=== PATIENT | male | born 1945 | race Caucasian/White ===

== ENCOUNTER 2018-05-24 13:58 | Inpatient (IN) | payer MEDICARE, OTHER, SELFPAY ==
[2018-05-24] VITALS (26 sets, daily range): BP systolic 144–211; BP diastolic 105–147; PULSE 65–88; RESP 12–26; TEMP 36.6–36.8; O2SAT 88–100
--- NOTE | 2018-05-24 14:03 | DI.CT.S_ITS ---
PROCEDURE: CT ABDOMEN PELVIS W CON INDICATIONS: abdomen distention LLQ pain TECHNIQUE: After the administration of intravenous contrast, 5 mm thick sections acquired from the diaphragm to the symphysis. 5 mm coronal and sagittal reformats were acquired. For radiation dose reduction, the following was used: automated exposure control, adjustment of mA and/or kV according to patient size. COMPARISON: None. FINDINGS: Image quality: Excellent. ABDOMEN: Lung bases: There is mild atelectasis in the lung bases along the hemidiaphragms. Heart size is normal. A small to moderate size hiatal hernia is present. There is mild concentric wall thickening in the distal esophagus. Solid organs: No focal hepatic mass lesion identified. There is mass effect on the liver from the dilated colonic loops. The gallbladder is nondistended without calcified gallstones. Biliary system is non dilated. Pancreas enhances normally. Spleen is normal in size and enhancement. No adrenal nodules. There is a right extrarenal pelvis. No definite hydronephrosis. Peritoneum and bowel: The small bowel is nondistended. There is marked distention of the colon, with the transverse colon measuring up to 9.7 cm. Air-fluid levels are demonstrated in the transverse, descending and sigmoid colon. There is a transition point distally in the sigmoid colon where there is associated twisting of the mesentery. The findings are consistent with a distal colonic obstruction likely secondary to a sigmoid volvulus. There is a small amount of intraperitoneal free fluid. No free air. Nodes and vessels: No retroperitoneal or mesenteric adenopathy by size criteria. Aorta and inferior vena cava are normal in size. Miscellaneous: No ventral hernias. PELVIS: Genitourinary: Bladder wall thickness is normal. There is prominent distention of the urinary bladder. Miscellaneous: No inguinal hernias or adenopathy. Bones: No suspicious bony lesions. No vertebral body compression fractures. IMPRESSION: 1. Marked distention of the colon with air-fluid levels and a transition point in the sigmoid colon consistent with a distal colonic obstruction. Associated twisting of the mesentery as well as the configuration of the sigmoid colon are suggestive of a sigmoid volvulus. Findings discussed with Dr. Marquez on 05/24/18 at 3:25 PM. Dictated by: Regis Juárez M.D. on 05/24/2018 at 15:25 Approved by: Regis Juárez M.D. on 05/24/2018 at 15:31
[2018-05-24 14:25] LABS: Add Manual Diff / Slide Review NO; Basophils Percent Auto 0.3 % (0-2); Eosinophils Percent Auto 0.3 % (2-4); Hemoglobin 14.7 g/dL (13.5-17.5); Lymphocytes Percent Auto 15.8 % (25-40); Mean Corpuscular Hemoglobin 32.1 PG (26-34); Mean Corpuscular Volume 91.8 fL (80-100); Monocytes Percent Auto 12.9 % (3-14); Neutrophils Absolute Auto 9300 /uL (3000-5900); Neutrophils Percent Auto 70.7 % (50-75); Platelet Count 315 X10^3/uL (150-400); Red Blood Cell Count 4.57 X10^6/uL (4.5-5.9); Red Cell Distribution Width 12.7 % (11.6-14.8); White Blood Cell Count 13.2 X10^3/uL (4.5-11.0)
--- NOTE | 2018-05-24 14:32 | ED.ABDPAIN ---
HPI - Abdominal Pain General Chief Complaint: Abdominal Pain Stated Complaint: Constipation x9 days Time Seen by Provider: 05/24/18 14:03 Source: patient and EMS Mode of arrival: EMS Limitations: no limitations History of Present Illness HPI narrative: Patient is a 72-year-old male who presents with abdominal pain. As he says it left lower quadrant he feels like he has have a bowel movement but has not had a bowel movement last 9 days. He denies any nausea or vomiting. No pressure in his rectum. He has no chest pain or heart palpitations no fever. MD complaint: abdominal pain Related Data Home Medications Medication Instructions Recorded Confirmed dorzolamide-timolol 1 drp EYE-BOTH BID 05/24/18 05/25/18 hydrochlorothiazide 25 mg PO DAILY 05/24/18 05/24/18 triamcinolone acetonide 1 applic TOPICAL PRN PRN 05/24/18 05/24/18 vitamins A,C,[id number] 1 tab PO BID 05/24/18 05/24/18 [PreserVision AREDS] Allergies Allergy/AdvReac Type Severity Reaction Status Date / Time No Known Drug Allergies Allergy Verified 05/24/18 15:17 Review of Systems Review of Systems All systems reviewed & are unremarkable except as noted in HPI and below Constitutional Denies chills, Denies fever(s), Denies lethargy and Denies weakness ENT Ears, Nose, Mouth, and Throat: Denies change in voice, Denies neck pain and Denies sore throat Cardiovascular Denies chest pain, Denies irregular heart rhythm, Denies lightheadedness, Denies palpitations, Denies dyspnea, Denies dyspnea on exertion and Denies orthopnea Respiratory Denies cough, Denies dyspnea, Denies dyspnea on exertion and Denies wheezing Gastrointestinal Gastrointestinal: Reports as per HPI, Reports abdominal pain, Reports constipation and Reports cramping Musculoskeletal Denies neck pain Neurologic Denies weakness Endocrine Denies palpitations Allergic/Immunologic Denies wheezing [facility] Medical History Hypertension (Acute) No significant past surgical history (Acute) Surgical History History of colonoscopy (Acute) Family History: Reviewed 05/24/18 by Pelon Stewart MD Social History household members: spouse Smoking Status: Never smoker Exam Initial Vital Signs Initial Vital Signs: Vital Signs Pulse Rate 83 05/24/18 15:17 Respiratory Rate 17 05/24/18 15:17 Blood Pressure 198/114 H 05/24/18 15:17 Pulse Oximetry 97 05/24/18 15:17 Const General: cooperative, healthy appearing and comfortable Nutritional Appearance: average body habitus HENMT Head: normocephalic and atraumatic Ears: external ears normal and TM's normal bilaterally Nose: external nose normal and No nasal discharge Face and sinus: sinuses nontender, face symmetric, no sinus tenderness and No dry mucous membranes Mouth: oral mucosae normal and moist mucous membranes Teeth and gingiva: dentition normal Throat: tonsils normal and uvula midline Neck Neck: normal visual inspection, trachea midline, No lymphadenopathy, No midline deformity and No JVD Lymphatic: No lymphedema Chest Chest: normal inspection of the chest Cardio Rate: regular rate Rhythm: regular rhythm Heart Sounds: no click, no gallops, no murmurs and no rubs Pulses: normal peripheral pulses GI Palpation: firm, rigid and tender Percussion: tympanic to percussion Auscultation: high-pitched sounds Procedures Procedural Sedation Patient Age: Patient is 5yrs or older Indication: other (Endoscopy) Presedation Evaluation: Has not eaten since yesterday ASA Class: I Mallampati Airway Classification: Class I Preparation: alumina plant supervisor applied, pulse oximeter, capnometry used and supplemental O2 applied Fentanyl dose (mcg): 10 (100mcg) Midazolam: IV Midazolam dose (mg): 2 ED Sedation Level: Moderate (Concious) Patient Tolerated Procedure: Well Complications: hypoxia Interventions: Airway repositioned and Oxygen applied Course Orders Ordered: ED Orders 05/25/18 05:44 Basic Metabolic Panel Routine CBC [Complete Blood Count AUTO DIFF] Routine Acetaminophen (Tylenol) 650 mg PO Q6HR PRN PRN Reason: As Needed for Fever/Mild Pain Dorzolamide/Timolol (Cosopt Eye Drops) 1 drops EYE-BOTH BID [facility] Enoxaparin Sodium (Lovenox) 40 mg SUBCUT DAILY [facility] HYDROMORPHONE EVENT SPECIALIST PRODUCT DEMONSTRATOR (Dilaudid 6 Mg/30 Ml) 6 mg in 30 mls @ 0 mls/hr IV Q8HR [facility] Last Admin: 05/25/18 03:26 Dose: 0 mls/hr Sodium Chloride (Normal Saline 0.9%) 1,000 mls @ 100 mls/hr IV CONT [facility] Last Admin: 05/25/18 03:25 Dose: 100 mls/hr Naloxone HCl (Narcan) 0.2 mg IV Q2MIN PRN; Protocol PRN Reason: Opiate Reversal Ondansetron HCl (Zofran) 4 mg IV Q8HR PRN PRN Reason: Nausea And Vomiting Pantoprazole Sodium (Protonix) 40 mg IV DAILY [facility] Simethicone (Mylicon) 80 mg PO QID PRN PRN Reason: Flatulence Discontinued Medications Bupivacaine HCl (Sensorcaine 0.5% (Pf)) 30 ml INJ NOW ONE Stop: 05/24/18 23:46 Last Admin: 05/24/18 23:48 Dose: 30 ml Fentanyl (Sublimaze) 100 mcg IV NOW ONE Stop: 05/24/18 19:25 Last Admin: 05/24/18 19:16 Dose: 100 mcg Fentanyl (Sublimaze) 50 mcg IV Q5MIN PRN PRN Reason: Pain, Moderate (4-6) Last Admin: 05/24/18 22:33 Dose: 50 mcg Hydralazine HCl (Apresoline) 20 mg IV NOW ONE Stop: 05/25/18 02:01 Last Admin: 05/25/18 02:18 Dose: 5 mg Hydromorphone HCl (Dilaudid) 0.5 mg IV NOW ONE Stop: 05/24/18 15:24 Last Admin: 05/24/18 15:24 Dose: 0.5 mg Hydromorphone HCl (Dilaudid) 1 mg IV NOW ONE Stop: 05/24/18 18:03 Last Admin: 05/24/18 18:09 Dose: 1 mg Hydromorphone HCl (Dilaudid) 0.5 mg IV Q5MIN PRN PRN Reason: Pain, Moderate (4-6) Hydromorphone HCl (Dilaudid) 1 mg IV Q2H PRN PRN Reason: Pain, Severe (7-10) Sodium Chloride (Normal Saline 0.9%) 1,000 mls @ 1,000 mls/hr IV CONT [facility] Last Infusion: 05/24/18 16:40 Dose: 0 mls/hr Admin: 05/24/18 15:23 Dose: 1,000 mls/hr Potassium Chloride 40 meq/ (Sodium Chloride) 520 mls @ 130 mls/hr IV NOW ONE Stop: 05/24/18 19:17 Last Infusion: 05/24/18 20:20 Dose: 0 mls/hr Admin: 05/24/18 15:48 Dose: 130 mls/hr Lactated Ringer's (Lactated Ringers) 1,000 mls @ 42 mls/hr IV CONT [facility] Last Infusion: 05/25/18 02:30 Dose: 0 mls/hr Admin: 05/24/18 23:45 Dose: 42 mls/hr Infusion: 05/24/18 23:45 Dose: 42 mls/hr Admin: 05/24/18 23:05 Dose: 42 mls/hr Sodium Chloride (Normal Saline 0.9%) 1,000 mls @ 100 mls/hr IV CONT [facility] Last Admin: 05/25/18 04:15 Dose: Not Given Cefotetan Disodium/Dextrose (Cefotan) 2 gm in 50 mls @ 100 mls/hr IV NOW ONE Stop: 05/24/18 22:36 Last Infusion: 05/24/18 23:32 Dose: 0 mls/hr Admin: 05/24/18 23:15 Dose: 100 mls/hr Sodium Chloride (Normal Saline 0.9%) 1,000 mls @ 100 mls/hr IV CONT [facility] Last Admin: 05/25/18 04:16 Dose: Not Given Midazolam HCl (Versed) 2 mg IV NOW ONE Stop: 05/24/18 19:26 Last Admin: 05/24/18 19:16 Dose: 2 mg Ondansetron HCl (Zofran) 4 mg IV NOW PRN PRN Reason: Nausea And Vomiting Vital Signs - 8 hr 05/24/18 23:13 05/24/18 23:17 05/24/18 23:21 Temperature Pulse Rate 71 74 76 Respiratory Rate 14 16 16 Blood Pressure 193/117 H 211/114 H 200/117 H Pulse Oximetry 92 92 93 05/24/18 23:25 05/24/18 23:29 05/24/18 23:33 Temperature Pulse Rate 66 73 69 Respiratory Rate 15 16 15 Blood Pressure 173/106 H 200/116 H 208/110 H Pulse Oximetry 92 92 94 05/24/18 23:45 05/24/18 23:57 05/25/18 01:55 Temperature 97.0 F L Pulse Rate 78 71 80 Respiratory Rate 13 15 11 L Blood Pressure 188/112 H 189/110 H 186/103 H Pulse Oximetry 92 93 91 05/25/18 02:00 05/25/18 02:08 05/25/18 02:14 Temperature Pulse Rate 79 82 81 Respiratory Rate 14 13 12 Blood Pressure 167/99 H 184/100 H 186/103 H Pulse Oximetry 93 96 96 05/25/18 02:18 05/25/18 02:25 05/25/18 02:29 Temperature Pulse Rate 80 87 82 Respiratory Rate 11 L 18 Blood Pressure 186/103 H 161/95 H 160/82 H Pulse Oximetry 97 98 05/25/18 02:59 05/25/18 03:20 05/25/18 03:40 Temperature 97.7 F 97.9 F 97.8 F Pulse Rate 85 85 86 Respiratory Rate 20 20 18 Blood Pressure 163/98 H 153/88 H 156/106 H Pulse Oximetry 96 97 96 05/25/18 03:52 05/25/18 04:17 05/25/18 04:36 Temperature 98.0 F Pulse Rate 87 Respiratory Rate 20 Blood Pressure 153/88 H 149/81 H Pulse Oximetry 95 95 05/25/18 06:18 Temperature 97.4 F L Pulse Rate 95 H Respiratory Rate 18 Blood Pressure 150/90 H Pulse Oximetry 94 MDM - Abdominal Pain Lab Data Attestation: I reviewed the patient's lab results. Result diagrams: 05/25/18 05:44 05/25/18 05:44 Lab Results 05/24/18 05/24/18 05/24/18 Range/Units 14:15 14:15 14:15 WBC 13.2 H (4.5-11.0) X10^3/uL RBC 4.57 (4.5-5.9) X10^6/uL Hgb 14.7 (13.5-17.5) g/dL Hct 42.0 (41-53) % MCV 91.8 (80-100) fL MCH 32.1 (26-34) PG MCHC 35.0 (30-36) % RDW 12.7 (11.6-14.8) % Plt Count 315 (150-400) X10^3/uL Neut % (Auto) 70.7 (50-75) % Lymph % (Auto) 15.8 L (25-40) % [place] % (Auto) 12.9 (3-14) % Eos % (Auto) 0.3 L (2-4) % Baso % (Auto) 0.3 (0-2) % Neut # (Auto) 9300 H (8830-8334) /uL Sodium 130 L (137-145) mmol/L Potassium 2.4 L* (3.4-5.1) mmol/L Chloride 81 L (98-107) mmol/L Carbon Dioxide 33 H (22-32) mmol/L BUN 19 (9-20) mg/dL Creatinine 0.60 L (0.66-1.25) mg/dL Estimated GFR > 60.0 (>60) mL/min BUN/Creatinine Ratio 31.7 H (6-22) Glucose 128 H (80-110) mg/dL Lactate 1.5 (0.7-2.1) mmol/L Calcium 8.5 (8.4-10.2) mg/dL Total Bilirubin 0.9 (0.2-1.3) mg/dL AST 30 (17-59) IU/L ALT 26 (21-72) IU/L Alkaline Phosphatase 57 (38-126) U/L Total Protein 7.1 (6.3-8.2) g/dL Albumin 4.4 (3.5-5.0) g/dL Globulin 2.7 (1.7-4.1) g/dL Albumin/Globulin Ratio 1.6 (1.0-2.8) Lipase 33 (23-300) U/L 05/25/18 05/25/18 Range/Units 05:44 05:44 WBC 14.2 H (4.5-11.0) X10^3/uL RBC 4.46 L (4.5-5.9) X10^6/uL Hgb 14.4 (13.5-17.5) g/dL Hct 41.0 (41-53) % MCV 92.0 (80-100) fL MCH 32.3 (26-34) PG MCHC 35.1 (30-36) % RDW 13.1 (11.6-14.8) % Plt Count 268 (150-400) X10^3/uL Neut % (Auto) Not Reportable (50-75) % Lymph % (Auto) Not Reportable (25-40) % [place] % (Auto) Not Reportable (3-14) % Eos % (Auto) Not Reportable (2-4) % Baso % (Auto) Not Reportable (0-2) % Neut # (Auto) (0028-8083) /uL Sodium 130 L (137-145) mmol/L Potassium 3.0 L (3.4-5.1) mmol/L Chloride 86 L (98-107) mmol/L Carbon Dioxide 35 H (22-32) mmol/L BUN 14 (9-20) mg/dL Creatinine 0.60 L (0.66-1.25) mg/dL Estimated GFR > 60.0 (>60) mL/min BUN/Creatinine Ratio 23.3 H (6-22) Glucose 127 H (80-110) mg/dL Lactate (0.7-2.1) mmol/L Calcium 8.2 L (8.4-10.2) mg/dL Total Bilirubin (0.2-1.3) mg/dL AST (17-59) IU/L ALT (21-72) IU/L Alkaline Phosphatase (38-126) U/L Total Protein (6.3-8.2) g/dL Albumin (3.5-5.0) g/dL Globulin (1.7-4.1) g/dL Albumin/Globulin Ratio (1.0-2.8) Lipase (23-300) U/L Imaging Data CT scan - abdomen: Radiologist's impression: PROCEDURE: CT ABDOMEN PELVIS W CON INDICATIONS: abdomen distention LLQ pain TECHNIQUE: After the administration of intravenous contrast, 5 mm thick sections acquired from the diaphragm to the symphysis. 5 mm coronal and sagittal reformats were acquired. For radiation dose reduction, the following was used: automated exposure control, adjustment of mA and/or kV according to patient size. COMPARISON: None. FINDINGS: Image quality: Excellent. ABDOMEN: Lung bases: There is mild atelectasis in the lung bases along the hemidiaphragms. Heart size is normal. A small to moderate size hiatal hernia is present. There is mild concentric wall thickening in the distal esophagus. Solid organs: No focal hepatic mass lesion identified. There is mass effect on the liver from the dilated colonic loops. The gallbladder is nondistended without calcified gallstones. Biliary system is non dilated. Pancreas enhances normally. Spleen is normal in size and enhancement. No adrenal nodules. There is a right extrarenal pelvis. No definite hydronephrosis. Peritoneum and bowel: The small bowel is nondistended. There is marked distention of the colon, with the transverse colon measuring up to 9.7 cm. Air-fluid levels are demonstrated in the transverse, descending and sigmoid colon. There is a transition point distally in the sigmoid colon where there is associated twisting of the mesentery. The findings are consistent with a distal colonic obstruction likely secondary to a sigmoid volvulus. There is a small amount of intraperitoneal free fluid. No free air. Nodes and vessels: No retroperitoneal or mesenteric adenopathy by size criteria. Aorta and inferior vena cava are normal in size. Miscellaneous: No ventral hernias. PELVIS: Genitourinary: Bladder wall thickness is normal. There is prominent distention of the urinary bladder. Miscellaneous: No inguinal hernias or adenopathy. Bones: No suspicious bony lesions. No vertebral body compression fractures. IMPRESSION: 1. Marked distention of the colon with air-fluid levels and a transition point in the sigmoid colon consistent with a distal colonic obstruction. Associated twisting of the mesentery as well as the configuration of the sigmoid colon are suggestive of a sigmoid volvulus. Findings discussed with Dr. Marquez on 05/24/18 at 3:25 PM. Dictated by: Regis Juárez M.D. on 05/24/2018 at 15:25 MDM Narrative Medical decision making narrative: 3:[address] Stewart made aware of patient and CT results. 5:[address] Stewart in the ED to see and evaluate patient. Plan on trying to do procedure in the ED with sedation. Endoscopy in the ED by Dr. Stewart. Unsuccessful patient will be going to OR. Discharge Plan Departure Patient Disposition: Admitted As Inpatient Clinical Impression: Sigmoid volvulus Discharge Date/Time: 05/24/18 20:21 Interventions: ED Discharge Assessment Last Done: 05/24/18 20:19 Admit Date/Time: 05/24/18 19:32 Admit Provider: Pelon Stewart
[2018-05-24 14:46] LABS: Lactate (Lactic Acid) 1.5 mmol/L (0.7-2.1)
[2018-05-24 14:51] LABS: Alanine Aminotransferase 26 IU/L (21-72); Albumin 4.4 g/dL (3.5-5.0); Albumin Globulin Ratio 1.6 (1.0-2.8); Alkaline Phosphatase 57 U/L (38-126); Aspartate Aminotransferase 30 IU/L (17-59); BUN Creatinine Ratio 31.7 (6-22); Bilirubin Total 0.9 mg/dL (0.2-1.3); Blood Urea Nitrogen 19 mg/dL (9-20); Calcium 8.5 mg/dL (8.4-10.2); Carbon Dioxide 33 mmol/L (22-32); Chloride 81 mmol/L (98-107); Estimated Glomerular Filt Rate > 60.0 mL/min (>60); Globulin 2.7 g/dL (1.7-4.1); Glucose 128 mg/dL (80-110); HEMOLYSIS < 15 (0-50); Lipase 33 U/L (23-300); Sodium 130 mmol/L (137-145); Total Protein 7.1 g/dL (6.3-8.2)
[2018-05-24 15:00] LABS: Potassium 2.4 mmol/L (3.4-5.1)
[2018-05-24] MEDS: SODIUM CHLORIDE 0.9% 1,000 ML 1000 ML IV (15:23)
[2018-05-24] MEDS: HYDROMORPHONE 1 MG INJ 0.5 MG IV (15:24)
[2018-05-24] MEDS: POTASSIUM CHLORIDE 40 MEQ in SODIUM CHLORIDE 0.9% 500 ML 130 ML IV (15:48)
[2018-05-24] MEDS: HYDROMORPHONE 2 MG INJ 1 MG IV (18:09)
[2018-05-24] MEDS: fentaNYL 100 MCG/2 ML INJ IV (19:16)
[2018-05-24] MEDS: MIDAZOLAM 2 MG/2 ML VIAL IV (19:16)
--- NOTE | 2018-05-24 19:43 | PC.NURSE ---
Procedural sedation performed by Dr. Marquez with Respiratory, and Surgery. Pt is arousable to sound but is still drowsy. Pt informed on change of plan and verbalizes understanding. Pt resting. appears comfortable.
--- NOTE | 2018-05-24 19:54 | PC.NURSE ---
Per conversation with patient, He states he feels goofy but okay. Still a little drowsy but denies pain. Pt awakes to sounds. Continually asks if his procedure worked. Updated pt every time he asks. Pt is slowly remembering our conversations.
--- NOTE | 2018-05-24 19:58 | PM.HP.1 ---
History of Present Illness Date Patient Seen: 05/24/18 Time Patient Seen: 19:58 Chief complaint: Constipation x9 days Narrative: 72-year-old male who presented to the emergency department early this afternoon with acute onset of abdominal pain late last evening and progressed throughout the day today. He has ceased passing flatus. He has not had any type of bowel function in the last day or so. He now feels extremely distended and mildly nauseated. He is having crampy diffuse abdominal pain throughout the abdomen. No subjective fever or chills. No chest pain or shortness of breath. He has never had any type of similar episodes in the past. No prior abdominal surgeries as well. Patient History Medical History Hypertension (Acute) No significant past surgical history (Acute) Surgical History History of colonoscopy (Acute) Family & Social History Family History: Reviewed 05/24/18 by Pelon Stewart MD Tobacco & Substance use: Nonsmoker Meds Home Medications Medication Instructions Recorded Confirmed Type dorzolamide-timolol 1 drp OPHTHALMIC (EYE) BID 05/24/18 05/24/18 History hydrochlorothiazide 25 mg PO DAILY 05/24/18 05/24/18 History triamcinolone acetonide 1 applic TOPICAL PRN PRN 05/24/18 05/24/18 History vitamins A,C,[id number] 1 tab PO BID 05/24/18 05/24/18 History [PreserVision AREDS] Allergies Allergy/AdvReac Type Severity Reaction Status Date / Time No Known Drug Allergies Allergy Verified 05/24/18 15:17 Review of Systems Review of Systems All systems reviewed & are unremarkable except as noted in HPI and below Exam Vital Signs (past 8 hours): - 05/24/18 15:17 05/24/18 16:18 05/24/18 16:30 Temperature 98.2 F Pulse Rate 83 70 Respiratory Rate 17 26 H Blood Pressure [Right Arm] 198/114 H 182/108 H Pulse Oximetry 97 98 05/24/18 18:44 05/24/18 19:00 05/24/18 19:16 Temperature Pulse Rate 76 73 72 Respiratory Rate 16 14 Blood Pressure [Right Arm] 160/118 H 147/119 H 147/116 H Pulse Oximetry 96 100 94 05/24/18 19:20 05/24/18 19:22 05/24/18 19:30 Temperature Pulse Rate 73 72 76 Respiratory Rate 13 14 15 Blood Pressure [Right Arm] 154/106 H 154/105 H 144/116 H Pulse Oximetry 88 L 92 97 05/24/18 19:35 05/24/18 19:42 05/24/18 19:46 Temperature Pulse Rate 75 76 75 Respiratory Rate 13 12 12 Blood Pressure [Right Arm] 148/116 H 176/113 H 188/147 H Pulse Oximetry 97 97 97 05/24/18 19:51 05/24/18 19:57 Temperature Pulse Rate 78 75 Respiratory Rate 13 14 Blood Pressure [Right Arm] 168/115 H 178/118 H Pulse Oximetry 97 97 Oxygen Delivery Method Nasal Cannula Oxygen Flow Rate 4 Narrative Exam Narrative: Well-nourished well-developed male in no acute distress but does appear mildly uncomfortable. Alert oriented x3. He has no family or friends with him at the time my visit. Afebrile in the emergency department No tachycardia Blood pressure noted to be elevated due to discomfort Sclera nonicteric No crackles or wheezes on chest auscultation Abdomen is markedly distended and firm. He is completely tympanitic. He is diffusely tender to palpation throughout but without guarding or rebound. No masses. No ascites. Extremities show no clubbing, cyanosis, or edema Rectal examination reveals no masses. The rectal vault is completely empty of stool. Objective Labs Result Diagrams: 05/24/18 14:15 05/24/18 14:15 Labs: Laboratory Results - last 24 hr 05/24/18 05/24/18 05/24/18 14:15 14:15 14:15 WBC 13.2 H RBC 4.57 Hgb 14.7 Hct 42.0 MCV 91.8 MCH 32.1 MCHC 35.0 RDW 12.7 Plt Count 315 Neut % (Auto) 70.7 Lymph % (Auto) 15.8 L [place] % (Auto) 12.9 Eos % (Auto) 0.3 L Baso % (Auto) 0.3 Neut # (Auto) 9300 H Sodium 130 L Potassium 2.4 L* Chloride 81 L Carbon Dioxide 33 H BUN 19 Creatinine 0.60 L Estimated GFR > 60.0 BUN/Creatinine Ratio 31.7 H Glucose 128 H Lactate 1.5 Calcium 8.5 Total Bilirubin 0.9 AST 30 ALT 26 Alkaline Phosphatase 57 Total Protein 7.1 Albumin 4.4 Globulin 2.7 Albumin/Globulin Ratio 1.6 Lipase 33 I have personally reviewed his CT scan of the abdomen and pelvis done in the emergency department prior to my consultation. He clearly has a transition point in the sigmoid colon consistent with volvulus. The entire colon is otherwise markedly dilated and air-filled. Maximal diameter measures 9 cm. No free air. There is some fluid in the pelvis. Assessment & Plan (1) No significant past surgical history: Current visit: Yes Status: Acute (2) History of colonoscopy: Problem details: Performed in 2018 at outside institution. Patient states colon was quite redundant per report. Current visit: Yes Status: Acute Plan: Assessment/Plan Narrative: 72-year-old male with apparent sigmoid volvulus causing colon obstruction. He has no evidence of ischemic bowel but I am concerned that he will progress to such. There is also the possibility of perforation if he cannot be decompressed. I discussed this with him at length. I discussed urgent rigid sigmoidoscopy in the emergency department under conscious sedation with potential placement of rectal tube. Technical details reviewed. Risks, benefits, alternatives were explained. Risks including but not limited to sedation, aspiration, bleeding, pain, inability to reduce the volvulus, colonic perforation, successful reduction followed by a recurrent volvulus, and need for emergent surgery were discussed in detail. He also understands that unsuccessful decompression endoscopically would necessitate laparotomy with potential bowel resection. He understands that this would potentially entail colostomy as well temporarily. Other risks of laparotomy including bladder injury, bowel injury, poor wound healing, ureter injury, and need for further major abdominal surgery were discussed at length. All questions were answered to his satisfaction, and he voiced understanding. Consent was placed on the chart for rigid sigmoidoscopy. Please see the procedure note, but I was unable to successfully reduce the volvulus with rigid sigmoidoscopy despite fully inserting the scope to 24 cm for its entire length. There was dusky mucosa present with mild mucoid bloody stool. Again, I remain concerned for ischemia and have recommended we proceed with laparotomy this evening. All questions were answered to his satisfaction, and he voiced understanding. Consent is on the chart. Orders written.
--- NOTE | 2018-05-24 20:07 | PM.OP.ENDO ---
Operative Date/Time/Diagnoses Date of procedure: 05/24/18 Time of procedure: 19:00 Pre-op diagnosis: Acute sigmoid colon volvulus Post-op diagnosis: same Procedure & Clinicians Study performed: 1. Conscious sedation per emergency room physician, Dr. Marquez 2. Rigid sigmoidoscopy with unsuccessful decompression of sigmoid volvulus Same procedure as scheduled: Yes Indications: 72-year-old male with findings consistent with sigmoid volvulus. Urgent rigid sigmoidoscopy with potential rectal tube placement was recommended. Surgeon: Pelon Stewart Procedure Notes SCOAP/Timeout: Yes Procedure in detail: After obtaining informed consent the patient was placed in a left lateral decubitus position on his gurney in the emergency room. He had been attached all appropriate cardiopulmonary monitors and nasal cannula oxygen applied. Respiratory therapy was also present for the procedure. Conscious sedation was achieved with Versed 2 mg IV and fentanyl 100 mcg IV per emergency room physician. Digital rectal examination was performed. No significant findings although the vault was completely empty of stool or liquid. Rigid sigmoidoscope was inserted and the bowel insufflated with air. Under direct visualization of the lumen the scope was advanced into the sigmoid colon for the entire length of the scope at approximately 24 cm. There was some bloody mucoid stool encountered along with some mildly dusky mucosa but no kym necrosis. I did not see an obvious torsion neck could be decompressed. There was no rapid expression of stool or air with the procedure. The abdomen did not decompress. Despite 2 attempts with the rigid sigmoidoscope there was no change in his examination. No obvious decompression was achieved. Therefore rectal tube was not inserted. Scope was withdrawn and the procedure was terminated. We will proceed with laparotomy as planned. Scope withdrawal time: Not applicable Sedation minutes: 10 Findings: other findings (Inadequate decompression of sigmoid volvulus) Specimen(s): none sent Complications: none Recommendations: Other recommendation Plan for aftercare: Proceed operating room for laparotomy Follow up: as needed Disposition: PACU
--- NOTE | 2018-05-24 20:11 | PM.PREOP ---
Pre-operative Note Interval Note Pre-op Check: Yes History & Physical Reviewed by Physician, Yes Exam Performed and Yes History & Physical exam performed today by Physician Changes: No H&P completed within 30 days and has changed as indicated here:: Patient seen and examined in the emergency department. Please see the history physical examination as dictated for details. Obviously, the history and physical examination have not changed over the last 2 hr or so. We will proceed with laparotomy emergently as planned.
[2018-05-24] MEDS: fentaNYL 100 MCG/2 ML INJ 50 MCG IV (22:33)
--- NOTE | 2018-05-24 22:35 | SUR.HOLD ---
2233 IV rx given after showing BP to anesthesia, pain levels.Told to use PACU orders.
--- NOTE | 2018-05-24 22:52 | PC.NURSE ---
Pt arrived to floor approximately 2049. Pt abdomen rounded, firm. IVF infusing as per orders. Pt escorted to surgery suite at 2129.
[2018-05-24] MEDS: LACTATED RINGERS 1,000 ML 42 ML IV ×2 (23:05→23:45)
[2018-05-24] MEDS: CEFOTETAN 2 GM/50 ML PIGGYBACK IV (23:15)
[2018-05-24] MEDS: BUPIVACAINE 0.5% (PF) VIAL 30 ML INJ (23:48)
--- NOTE | 2018-05-24 23:54 | SUR.OPER ---
Supine on padded OR bed, head on pillow, arms secured on padded arm boards at <90 degrees abduction, legs uncrossed, safety belt at thigh, tape over blanket over lower legs.
[2018-05-25] VITALS (25 sets, daily range): BP systolic 149–204; BP diastolic 80–119; PULSE 71–98; RESP 11–20; TEMP 36.1–36.7; O2SAT 91–98; BMI 23.8
--- NOTE | 2018-05-25 | PATH_ITS ---
[facility] Accession Number: [id number] . 01 Material submitted: . SIGMOID COLON . 02 Diagnosis: Sigmoid Colon, Sigmoid Colectomy: Segment of colon with incidental hyperplastic polyps. Thirteen benign edematous pericolonic lymph nodes, consistent with clinical history of volvulus. Histologically viable margins of resection. Negative for active inflammation, granulomata, dysplasia or malignancy. MRV/05/30/2018 . 02 Electronically signed: . Heraclio Harris MD, PhD, Pathologist NPI- [id number] . 01 Gross description: . Received in formalin, labeled sigmoid colon, is an unoriented segment of colon (length-57.5 cm, resection margin #1 diameter-4.6 cm, resection margin #2 diameter-9.2 cm) with attached mesentery (up to 7.0 cm in depth). The resection margins are received stapled. The serosa is lam-pink smooth and shiny. The mucosa is lam with normal and focally edematous folds. Multiple possible pale ying rubbery polyps (0.1 x 0.1 x 0.1 cm-0.6 x 0.5 x 0.2 cm) are identified 36.7 cm from resection margin #1 and 0.5 cm from resection margin #2. No nodules, masses or perforations are identified. Multiple possible lymph nodes (0.2 x 0.2 x 0.1 cm-1.2 x 0.6 x 0.4 cm) are identified. The resection margins are inked black. Section code: (A1) resection margin #1, sales representative gas service perpendicular sections; (A2) resection margin #2, sales representative gas service perpendicular sections; (A3-A7) sales representative gas service serial sections submitted from resection margin #1 to #2; (A8) multiple intact lymph nodes; (A9) one bisected lymph node. ([id number]) /[facility] . 02 Pathologist provided ICD-10: K56.2 . 02 CPT . 207725 Performed at: 01 [facility] [address] [id number] MD Regis Stone MD Phone: [phone] Performed at: [id number] [place], [place] [id number] MD Didi Swift MD Phone: [phone]
--- NOTE | 2018-05-25 00:50 | SUR.HOLD ---
late [id number] Inspite of patient not desiring to have medication, BP remained elevated. Anesthesia notified and order was given to medicate using the PACU order. Rx given at 2233 after patient was placed on continuous vital signs monitor. Report given soon after to anesthesia and circulating RN. See VS. Patient stated that pain came down to 4/10 after medication.
--- NOTE | 2018-05-25 01:03 | SUR.HOLD ---
2300 Patient resting with mild to moderate pain, not consistent. Being seen by anesthesia provider and surgery staff in preparation for transport.
--- NOTE | 2018-05-25 02:08 | PM.OP.1 ---
Operative Date/Time/Diagnoses Date of procedure: 05/25/18 Time of procedure: 02:08 Pre-op diagnosis: Sigmoid volvulus Post-op diagnosis: same Procedure & Clinicians Procedure: Exploratory laparotomy with excision of significantly redundant dilated sigmoid colon and formation of descending colostomy Same procedure as scheduled: Yes Indications: 72-year-old male who presented with the emergency department with extreme abdominal distension, lack of flatus, and no recent bowel function. Examination and evaluation were consistent with sigmoid volvulus. I was unable to reduce him endoscopically in the emergency department with rigid sigmoidoscopy. He was therefore recommended undergo urgent laparotomy with potential bowel resection. Surgeon: Pelon Stewart Click Yes if Unassisted: Yes Anesthesia Type: General Operative Notes Findings: 1. Extremely redundant atonic sigmoid colon 2. Extremely redundant mobile stool filled cecum with extremely long but otherwise normal appendix 3. Volvulus of the sigmoid colon above the peritoneal reflection but with no gross ischemia or perforation Closure Type: primary Specimen(s): other (Sigmoid colon) Implants & Drains: None Estimated Blood Loss (mL): 100 Blood products transfused: none Procedure in detail: After obtaining informed consent the patient was brought to the operating room and placed supine on the table. After satisfactory induction of anesthesia a SCOAP time-out was performed per standard protocol. Williamson catheter was inserted to decompress the urinary bladder. Abdomen was prepped and draped in usual sterile fashion. Vertical midline incision was created around the umbilicus with 10 scalpel blade after injecting 0.5% plain Marcaine in the skin and subcutaneous tissue for postoperative analgesia. Bovie was used to achieve hemostasis and carried the dissection down through the subcutaneous tissue to the rectus fascia which was divided in the midline at the level of the umbilicus. Underlying peritoneum was entered under direct visualization using hemostats. Surgeon's finger was then inserted and the entire length of the incision was opened along the midline of the fascia. Exploration revealed findings as above. The entire very redundant sigmoid colon was exteriorized and volvulus was reduced. Cecum was also exteriorized but was otherwise grossly normal. Small bowel was completely collapsed from the ileocecal valve proximally. Small amount of free fluid was noted in the pelvis but no pus or blood. Palpation of the retroperitoneum in the lower edge of the liver revealed no obvious masses. The transverse colon and right colon were also somewhat dilated and air-filled as well. The colon was viable however without evidence of ischemia. The area at the volvulus was somewhat less dilated so I elected to resect approximately 2 ft of the very redundant markedly dilated sigmoid colon. Colon and its largest diameter measured approximately 11 cm. The narrow portion of the colon was divided with a single application of the WESLEY 75 stapler. Mesentery was taken down between clamps and secured with 2 0 silk ties as well as 3 0 silk suture ligatures on larger vessels. Because the colon was so dilated I placed the stapled end of the bowel into a large basin and opened the staple line with scissors thereby decompressing the colon of a significant amount air. There was no stool present. After decompression, the distal colon was divided above the peritoneal reflection with 2 applications of the WESLEY 75 mm stapler. Staple line was oversewn with individual 3 0 silk seromuscular stitches and hemostasis was achieved. There was no evidence of any leakage. Proximal colon was mostly decompressed and therefore mobile with adequate length to form a colostomy. No further mobilization was required. Appropriate site was chosen for a descending end colostomy along the anterior abdominal wall. Skin was secured with a Beth clamp and incised in a circular fashion with 10 scalpel blade. Bovie was used to achieve hemostasis and removed a section of the skin and subcutaneous tissue down to the rectus fascia. Fascia was divided in a cruciate fashion with the Bovie and the peritoneum was opened large enough to admit 2 of the surgeon's fingers easily. Descending colon was then exteriorized through the defect without difficulty. However, the distal bowel at the staple line was somewhat ischemic in appearance so I removed the distal bowel with another application of the WESLEY 75 mm stapler. There was vigorous bleeding along the staple line and the bowel was otherwise quite pink and viable. Care was taken to avoid torsion to the mesentery when forming the colostomy. Cecum and small bowel were replaced into their usual anatomic position. Abdomen was irrigated with 2 L of sterile saline solution and suction from the abdomen. Irrigant returned clear. Hemostasis was again noted along the staple lines as well as the mesentery. Therefore the fascia was closed with 2 individual running 1 Prolene sutures tied in the midline. Subcutaneous tissue was irrigated and noted to be hemostatic. Several interrupted 3 0 Vicryl sutures were placed to reapproximate subcutaneous tissue. Skin was closed with jason. Wound was covered with a sterile towel and attention was turned to maturing the colostomy. Again the bowel was somewhat edematous and dilated but there was adequate height. Colostomy was matured in the standard fashion with interrupted seromuscular 3 0 Vicryl sutures after removing the staple line with Metzenbaum scissors. Temporary colostomy appliance was placed. Sterile dressing was placed over the wound. The colostomy was noted to immediately start decompressing air from the proximal colon. Anesthesia was reversed and patient extubated in the operating room. He was taken recovery stable condition. Complications: none Condition: stable Disposition: PACU Plan for aftercare: 1. Return to regular surgical floor for ongoing convalescence 2. Await return of bowel function with colostomy output
[2018-05-25] MEDS: HYDRALAZINE 20 MG/ML VIAL IV (02:18)
--- NOTE | 2018-05-25 02:51 | SUR.PHASEI ---
0155 To PACU from OR, midline abdominal dressing CDI. Ostomy bag over pink stoma, scant amount of brownish liquid in bag; passing flatus into bag. Skin warm and dry, resp even and regular. SCD's on.
--- NOTE | 2018-05-25 02:56 | SUR.PHASEI ---
0233 TO room 219. Bed down and locked, call light within reach. Report given. patient sitting up, moving easily in the bed without grimace or complaint of abdominal pain. Staff will obtain SCD machine.Patient stable, calm, friendly. Expressed appreciation for care. No questions/concerns from patient or staff.
[2018-05-25] MEDS: SODIUM CHLORIDE 0.9% 1,000 ML 100 ML IV (03:25)
[2018-05-25] MEDS: HYDROMORPHONE PCA 6 MG/30 ML PCA.VIAL IV ×3 (03:26→22:05)
--- NOTE | 2018-05-25 05:40 | PC.NURSE ---
05/25 0540 pt arrived to floor at 0320, alert and oriented and denying presence of pain. Pt continues to have elevated BPs but per report from PACU this has been the trend. BP normalized slightly as shift progressed. Williamson catheter draining to gravity, ostomy with brown liquid output and a beefy red stoma. 2L maintained with O2 levels in mid to upper 90's. IVF and RURAL ROUTE MAIL CARRIER initiated per order, education on RURAL ROUTE MAIL CARRIER provided.
[2018-05-25 06:18] LABS: Hemoglobin 14.4 g/dL (13.5-17.5); Mean Corpuscular HGB Conc 35.1 % (30-36); Mean Corpuscular Hemoglobin 32.3 PG (26-34); Platelet Count 268 X10^3/uL (150-400); Red Blood Cell Count 4.46 X10^6/uL (4.5-5.9); Red Cell Distribution Width 13.1 % (11.6-14.8); White Blood Cell Count 14.2 X10^3/uL (4.5-11.0)
[2018-05-25 06:19] LABS: Add Manual Diff / Slide Review YES; BUN Creatinine Ratio 23.3 (6-22); Blood Urea Nitrogen 14 mg/dL (9-20); Calcium 8.2 mg/dL (8.4-10.2); Carbon Dioxide 35 mmol/L (22-32); Chloride 86 mmol/L (98-107); Estimated Glomerular Filt Rate > 60.0 mL/min (>60); Glucose 127 mg/dL (80-110); HEMOLYSIS < 15 (0-50); Sodium 130 mmol/L (137-145)
[2018-05-25 07:49] LABS: Neutrophils Absolute Manual 13064 /uL (3000-5900); Total Cells Counted 100
[2018-05-25 07:50] LABS: RBC Morphology Normal Morphology
--- NOTE | 2018-05-25 08:59 | CM.DANOTE ---
DCP: Case received, EMR reviewed and met with patient. Introduced self and role. DCP template completed with information currently available. Patient is a 72 year old male who admitted yesterday evening to the care of the hospitalist team. PCP: Dr. Mari. Payer: confirmed: Medicare/[employer]. Patient came to hospital via ambulance for constipation issues, and abdominal distension. Patient carries diagnosis of colon obstruction. Had a Laparotomy with bowel resection, temporary colostomy placed. Patient alert and oriented, independent. Lives with spouse in [place], but stated that his is currently at [facility]. P: DCP to follow closely as plan unfolds. Could go home when stable, depending on progress here in hospital. May need to look into home health if patient leaves with ostomy. Leona Alva RN/Marketing Communications Associate
[2018-05-25] MEDS: DORZOLAMIDE/TIMOLOL OPHTH 10 ML 1 DROPS EYE-BOTH ×2 (09:09→20:10)
[2018-05-25] MEDS: ENOXAPARIN 40 MG/0.4 ML SYRINGE SUBCUT (09:09)
[2018-05-25] MEDS: PANTOPRAZOLE 40 MG VIAL IV (09:09)
--- NOTE | 2018-05-25 11:41 | PM.PN.1 ---
Subjective Date Patient Seen: 05/25/18 Time Patient Seen: 11:41 Interval history: patient denies significant pain. Pain control with GROCERY WORKER. No nausea vomiting. Still feels subjectively distended. Has had gas and small amount of liquid stool per ostomy early this morning several hours after surgery. Williamson catheter remains in place. No chest pain or shortness of breath. Exam Vital Signs (past 8 hours): - 05/25/18 03:52 05/25/18 04:17 05/25/18 04:36 Temperature 98.0 F Pulse Rate 87 Respiratory Rate 20 Blood Pressure 153/88 H 149/81 H Pulse Oximetry 95 95 05/25/18 06:18 05/25/18 07:09 05/25/18 08:25 Temperature 97.4 F L 97.9 F Pulse Rate 95 H 86 Respiratory Rate 18 20 Blood Pressure 150/90 H 161/88 H Pulse Oximetry 94 95 95 05/25/18 08:43 Temperature Pulse Rate Respiratory Rate Blood Pressure Pulse Oximetry 95 Oxygen Delivery Method Nasal Cannula Oxygen Flow Rate 1 Narrative Exam Narrative: Well-nourished well-developed male in no acute distress lying comfortably in bed. Alert oriented x3 remains on 1 L nasal cannula oxygen with saturations of 96% Williamson is draining clear yellow urine chest clear to auscultation bilaterally without crackles or wheezes. Regular rate and rhythm. No murmurs. abdomen is soft and much less distended. He has hypoactive bowel sounds throughout. Dressing is clean, dry, and intact. Ostomy is edematous but pink and viable. There is some small liquid stool in the appliance. Some flatus as well. He is appropriately tender to palpation without guarding or rebound. extremities show no clubbing, cyanosis, or edema Objective Labs Result Diagrams: 05/25/18 05:44 05/25/18 05:44 Labs: Laboratory Results - last 24 hr 05/24/18 05/24/18 05/24/18 14:15 14:15 14:15 WBC 13.2 H RBC 4.57 Hgb 14.7 Hct 42.0 MCV 91.8 MCH 32.1 MCHC 35.0 RDW 12.7 Plt Count 315 Neut % (Auto) 70.7 Lymph % (Auto) 15.8 L Burnett % (Auto) 12.9 Eos % (Auto) 0.3 L Baso % (Auto) 0.3 Neut # (Auto) 9300 H Total Counted Seg Neutrophils % Band Neutrophils % Lymphocytes % (Manual) Monocytes % (Manual) Metamyelocytes % Myelocytes % Neutrophils # (Manual) RBC Morphology Sodium 130 L Potassium 2.4 L* Chloride 81 L Carbon Dioxide 33 H BUN 19 Creatinine 0.60 L Estimated GFR > 60.0 BUN/Creatinine Ratio 31.7 H Glucose 128 H Lactate 1.5 Calcium 8.5 Total Bilirubin 0.9 AST 30 ALT 26 Alkaline Phosphatase 57 Total Protein 7.1 Albumin 4.4 Globulin 2.7 Albumin/Globulin Ratio 1.6 Lipase 33 05/25/18 05/25/18 05:44 05:44 WBC 14.2 H RBC 4.46 L Hgb 14.4 Hct 41.0 MCV 92.0 MCH 32.3 MCHC 35.1 RDW 13.1 Plt Count 268 Neut % (Auto) Not Reportable Lymph % (Auto) Not Reportable Burnett % (Auto) Not Reportable Eos % (Auto) Not Reportable Baso % (Auto) Not Reportable Neut # (Auto) Total Counted 100 Seg Neutrophils % 87.0 H Band Neutrophils % 5.0 Lymphocytes % (Manual) 2.0 L Monocytes % (Manual) 4.0 Metamyelocytes % 1.0 H Myelocytes % 1.0 H Neutrophils # (Manual) 92748 H RBC Morphology Normal morphology Sodium 130 L Potassium 3.0 L Chloride 86 L Carbon Dioxide 35 H BUN 14 Creatinine 0.60 L Estimated GFR > 60.0 BUN/Creatinine Ratio 23.3 H Glucose 127 H Lactate Calcium 8.2 L Total Bilirubin AST ALT Alkaline Phosphatase Total Protein Albumin Globulin Albumin/Globulin Ratio Lipase Assessment & Plan Plan: Assessment/Plan Narrative: 72-year-old male postoperative day 1 from laparotomy with sigmoid colectomy and descending colostomy for volvulus who overall is stable. We will discontinue the Williamson today. Ambulate in the hallways with assistance at least 4 times daily. Change to maintenance IV fluids including some potassium infusion. Continue GROCERY WORKER current settings. Encourage pulmonary toilet with incentive spirometry and coughing. Discontinue oxygen. Continue sips of clear liquids only for oral comfort until such time he has better bowel function. Operative findings were discussed with the patient in detail. All questions were answered to his satisfaction, and he voiced understanding. Orders were written.
--- NOTE | 2018-05-25 11:44 | P.PN_ITS ---
Subjective Date Patient Seen: 05/25/18 Time Patient Seen: 11:41 Interval history: patient denies significant pain. Pain control with CORPORATE HEALTH CONSULTANT. No nausea vomiting. Still feels subjectively distended. Has had gas and small amount of liquid stool per ostomy early this morning several hours after surgery. Williamson catheter remains in place. No chest pain or shortness of breath. Exam Vital Signs (past 8 hours): - 05/25/18 03:52 05/25/18 04:17 05/25/18 04:36 Temperature 98.0 F Pulse Rate 87 Respiratory Rate 20 Blood Pressure 153/88 H 149/81 H Pulse Oximetry 95 95 05/25/18 06:18 05/25/18 07:09 05/25/18 08:25 Temperature 97.4 F L 97.9 F Pulse Rate 95 H 86 Respiratory Rate 18 20 Blood Pressure 150/90 H 161/88 H Pulse Oximetry 94 95 95 05/25/18 08:43 Temperature Pulse Rate Respiratory Rate Blood Pressure Pulse Oximetry 95 Oxygen Delivery Method Nasal Cannula Oxygen Flow Rate 1 Narrative Exam Narrative: Well-nourished well-developed male in no acute distress lying comfortably in bed. Alert oriented x3 remains on 1 L nasal cannula oxygen with saturations of 96% Williamson is draining clear yellow urine chest clear to auscultation bilaterally without crackles or wheezes. Regular rate and rhythm. No murmurs. abdomen is soft and much less distended. He has hypoactive bowel sounds throughout. Dressing is clean, dry, and intact. Ostomy is edematous but pink and viable. There is some small liquid stool in the appliance. Some flatus as well. He is appropriately tender to palpation without guarding or rebound. extremities show no clubbing, cyanosis, or edema Objective Labs Result Diagrams: 05/25/18 05:44 05/25/18 05:44 Labs: Laboratory Results - last 24 hr 05/24/18 05/24/18 05/24/18 14:15 14:15 14:15 WBC 13.2 H RBC 4.57 Hgb 14.7 Hct 42.0 MCV 91.8 MCH 32.1 MCHC 35.0 RDW 12.7 Plt Count 315 Neut % (Auto) 70.7 Lymph % (Auto) 15.8 L Pickett % (Auto) 12.9 Eos % (Auto) 0.3 L Baso % (Auto) 0.3 Neut # (Auto) 9300 H Total Counted Seg Neutrophils % Band Neutrophils % Lymphocytes % (Manual) Monocytes % (Manual) Metamyelocytes % Myelocytes % Neutrophils # (Manual) RBC Morphology Sodium 130 L Potassium 2.4 L* Chloride 81 L Carbon Dioxide 33 H BUN 19 Creatinine 0.60 L Estimated GFR > 60.0 BUN/Creatinine Ratio 31.7 H Glucose 128 H Lactate 1.5 Calcium 8.5 Total Bilirubin 0.9 AST 30 ALT 26 Alkaline Phosphatase 57 Total Protein 7.1 Albumin 4.4 Globulin 2.7 Albumin/Globulin Ratio 1.6 Lipase 33 05/25/18 05/25/18 05:44 05:44 WBC 14.2 H RBC 4.46 L Hgb 14.4 Hct 41.0 MCV 92.0 MCH 32.3 MCHC 35.1 RDW 13.1 Plt Count 268 Neut % (Auto) Not Reportable Lymph % (Auto) Not Reportable Pickett % (Auto) Not Reportable Eos % (Auto) Not Reportable Baso % (Auto) Not Reportable Neut # (Auto) Total Counted 100 Seg Neutrophils % 87.0 H Band Neutrophils % 5.0 Lymphocytes % (Manual) 2.0 L Monocytes % (Manual) 4.0 Metamyelocytes % 1.0 H Myelocytes % 1.0 H Neutrophils # (Manual) 10542 H RBC Morphology Normal morphology Sodium 130 L Potassium 3.0 L Chloride 86 L Carbon Dioxide 35 H BUN 14 Creatinine 0.60 L Estimated GFR > 60.0 BUN/Creatinine Ratio 23.3 H Glucose 127 H Lactate Calcium 8.2 L Total Bilirubin AST ALT Alkaline Phosphatase Total Protein Albumin Globulin Albumin/Globulin Ratio Lipase Assessment & Plan Plan: Assessment/Plan Narrative: 72-year-old male postoperative day 1 from laparotomy with sigmoid colectomy and descending colostomy for volvulus who overall is stable. We will discontinue the Williamson today. Ambulate in the hallways with assistance at least 4 times daily. Change to maintenance IV fluids including some potassium infusion. Continue CORPORATE HEALTH CONSULTANT current settings. Encourage pulmonary toilet with incentive spirometry and coughing. Discontinue oxygen. Continue sips of clear liquids only for oral comfort until such time he has better bowel function. Operative findings were discussed with the patient in detail. All questions were answered to his satisfaction, and he voiced understanding. Orders were written.
[2018-05-25] MEDS: DEXTROSE 5%-NS W/KCL 20MEQ 1,000 ML 100 MEQ IV (12:02)
--- NOTE | 2018-05-25 18:08 | PC.NURSE ---
Addendum entered by Shira Hancock R.N. 05/25/18 21:24: Pt B/P elevated to 200/119. MD notified, orders recieved. Hydrolozine IV given. 30 min later 151/81. Pt asymptomatic. Colostomy stoma beefy red. Stable post op course. Planning D/C tomorrow. Call light w/in reach, bed alarm on for pt safety. Continue w/plan of care. Original Note: Pt up ad byron in room. Lungs clear, SpO2 97% RA Magno discomfort. IVF infusing at 100cc/hr via pump w/o incidense. Colostomy reived of flatus and 50cc liquiud stool. Pt performed task w/minimal guidence. Stable post op course. Call light w/in reach.
[2018-05-25] MEDS: HYDRALAZINE 20 MG/ML VIAL 10 MG IV (20:11)
[2018-05-25] MEDS: hydroCHLOROthiazide 25 MG TABLET PO (20:28)
[2018-05-26] VITALS (9 sets, daily range): BP systolic 142–163; BP diastolic 80–102; PULSE 76–87; RESP 14–18; TEMP 36.6–37.1; O2SAT 93–96; BMI 23.8
[2018-05-26] MEDS: HYDROMORPHONE PCA 6 MG/30 ML PCA.VIAL IV (05:42)
[2018-05-26] MEDS: DEXTROSE 5%-NS W/KCL 20MEQ 1,000 ML 100 MEQ IV ×2 (06:53→21:42)
[2018-05-26] MEDS: DORZOLAMIDE/TIMOLOL OPHTH 10 ML 1 DROPS EYE-BOTH ×2 (06:53→18:29)
--- NOTE | 2018-05-26 07:13 | PC.NURSE ---
05/26 0713 alert and oriented, vss on ra, pain controlled with ETHANOL QUALITY LEADER, urinating straw colored urine, and blood tinged liquid stool out of ostomy. Ostomy beefy red and protruding. Burped ostomy x3 this shift.
[2018-05-26] MEDS: ENOXAPARIN 40 MG/0.4 ML SYRINGE SUBCUT (10:03)
[2018-05-26] MEDS: hydroCHLOROthiazide 25 MG TABLET PO (10:04)
[2018-05-26] MEDS: PANTOPRAZOLE 40 MG VIAL IV (10:04)
--- NOTE | 2018-05-26 12:28 | PC.NURSE ---
Wound Ostomy Nurse Consult Note Mr. Canales awake out of bed walking around. He is tolerating a full liquid diet, and he is not having any pain. His nurse stated that he has been looking at his stoma and has also burped it a few times. Mr. Canales lives on [place] with his but she is currently at [facility]. He said she has an mastectomy but is now at [facility] because she has a lot of stress. I asked if there is anyone else at home that can help him with his ostomy care and he said he has a neighbor whom is a good friend and a retired doctor. I feel Mr. Canales is physically and mentally strong to take care of his own ostomy. He is very engaged in my teaching and participates with his ostomy care with me. I changed his appliance today and he watched and asked great questions. I left him several new colostomy new patient guides: [employer], Convatec as well as Shield product guide. I will return tomorrow and have him practice on the stoma model. His stoma is edematous, moist, deep red. There is old blood clots around the stoma and I was able to remove some and the rest will slough off. His stoma measures 52mm. The chiara-stomal skin is intact. His mid-line jason are dry and intact. I placed him in a 70mm Convatec Moldable wafer and clear non-filtered pouch. I also used an adaptor so he can easily burp the pouch without putting a lot of pressure on his abdominal muscles to re-attach the pouch.
[2018-05-26] MEDS: HYDROCODONE/ACET 5/325 TABLET 1 TAB PO (13:43)
--- NOTE | 2018-05-26 16:18 | PM.PN.1 ---
Subjective Date Patient Seen: 05/26/18 Time Patient Seen: 16:18 Interval history: Patient denies any significant pain. No nausea vomiting. Tolerating clear liquids without issues. Passing flatus and will hold liquid stool per colostomy. No dysuria hematuria. Ambulating well unassisted. Denies chest pain or shortness of breath. No subjective fever or chills. Exam Vital Signs (past 8 hours): - 05/26/18 09:50 05/26/18 11:15 05/26/18 15:00 Temperature 97.8 F 98.4 F Pulse Rate 80 86 Respiratory Rate 16 16 Blood Pressure 160/100 H 161/93 H Pulse Oximetry 94 93 95 Oxygen Delivery Method Room Air Oxygen Flow Rate 0 Narrative Exam Narrative: Well-nourished well-developed male in no acute distress. Alert oriented x3. Chest clear to auscultation bilaterally with regular rate and rhythm. Abdomen shows some hypoactive bowel sounds diffusely. Incision is clean, dry, and intact. No erythema or ecchymosis. No wound drainage. Colostomy is edematous but pink and viable. Air and liquid stool in the appliance. Extremities show no clubbing or cyanosis Objective Labs Result Diagrams: 05/25/18 05:44 05/25/18 05:44 Assessment & Plan Plan: Assessment/Plan Narrative: 72-year-old male postoperative day 2 from sigmoid colectomy and colostomy formation for sigmoid volvulus who is doing remarkably well currently. Appreciate enterostomal therapy nurse educating the patient earlier today. He actually she is doing well with self-care. Advanced to full liquid diet. If he does well with this then regular diet tomorrow. Discontinue HYDROGRAPHIC ENGINEER and switch to oral analgesia. Restart home medications. If he continues to progress at this level than likely home in 2 days or so. I discussed this with him and he voiced understanding. All questions were answered to his satisfaction. Orders were written.
--- NOTE | 2018-05-26 21:04 | PC.NURSE ---
SHIFT NOTE A&Ox3, pleasant and cooperative with care. independent with ADLs. midline abdominal incision with jason, DICTATING MACHINE TRANSCRIBER with small amounts of dried blood. periwound area with some bruising. colostomy intact, stoma swollen but beefy red in color and + gas/liquid stool. pt ambulated in hallways 4x this shift. tolerating full liquid diet without complaints of N/V. call light within reach.
[2018-05-26] MEDS: HYDRALAZINE 10 MG TABLET 5 MG PO (21:41)
[2018-05-27] VITALS (10 sets, daily range): BP systolic 144–160; BP diastolic 83–96; PULSE 74–86; RESP 16–18; TEMP 36.5–36.8; O2SAT 94–97
[2018-05-27] MEDS: HYDRALAZINE 10 MG TABLET 5 MG PO ×2 (00:51→16:01)
--- NOTE | 2018-05-27 04:28 | PC.NURSE ---
Pt is A and O x 4, calm and cooperative. Pt has had medium loose thick greenish brown stool x 2 this shift, as well as lots of gas. He is voiding copious amounts of pale yellow urine; > 1700 mLs this shift. LS clear, S1, S2, and rates pain 0/10. Stoma is red.
[2018-05-27] MEDS: PANTOPRAZOLE 40 MG VIAL IV (08:23)
[2018-05-27] MEDS: DORZOLAMIDE/TIMOLOL OPHTH 10 ML 1 DROPS EYE-BOTH ×2 (08:23→21:17)
[2018-05-27] MEDS: hydroCHLOROthiazide 25 MG TABLET PO (08:23)
[2018-05-27] MEDS: ENOXAPARIN 40 MG/0.4 ML SYRINGE SUBCUT (08:23)
[2018-05-27] MEDS: HYDROCODONE/ACET 5/325 TABLET 1 TAB PO ×2 (08:23→21:19)
--- NOTE | 2018-05-27 10:51 | PM.PN.1 ---
Subjective Date Patient Seen: 05/27/18 Time Patient Seen: 10:51 Interval history: No new complaints. Denies any significant pain. Tolerating full liquids without issue. No nausea or vomiting. Continues to have flatus and stool per colostomy. Doing well with ostomy education. Ostomy nurse to return today for ongoing training. No dysuria or hematuria. Ambulating without difficulty. Exam Vital Signs (past 8 hours): - 05/27/18 05:30 05/27/18 05:31 05/27/18 07:44 Temperature 98.0 F 97.7 F Pulse Rate 76 76 74 Respiratory Rate 16 16 Blood Pressure 160/96 H 160/96 H 155/96 H Pulse Oximetry 95 95 05/27/18 08:04 Temperature Pulse Rate Respiratory Rate Blood Pressure Pulse Oximetry 95 Oxygen Delivery Method Room Air Oxygen Flow Rate 0 Narrative Exam Narrative: Well-nourished well-developed in no acute distress. Alert oriented x3. Just completed a shower. Regular rate rhythm abdomen soft and nondistended. Colostomy is edematous and protuberant but viable with gas and stool in the appliance. Incision is clean, dry, and intact without drainage, erythema, or ecchymoses. He is appropriately tender to palpation but certainly without guarding or rebound. extremities show no clubbing or cyanosis Objective Labs Result Diagrams: 05/25/18 05:44 05/25/18 05:44 Labs: no new laboratory or radiographic studies for review today Assessment & Plan Plan: Assessment/Plan Narrative: 72-year-old male postoperative day 3 from laparotomy with sigmoid colectomy and descending colostomy who is doing remarkably well. Advance to regular diet. Saline lock IV. Continue oral analgesia. Ambulate as tolerated. Convert to oral medications. Maintain home medications as previously prescribed. At this point he requires ongoing ostomy education and arrangement for home supplies. Once this is in place he can be discharged home. I suspect he will be ready for such by tomorrow morning. All questions answered to his satisfaction, and he voiced understanding. Orders written.
--- NOTE | 2018-05-27 18:06 | PC.NURSE ---
Wound Ostomy Consult Note Herbert up waiting for me. He has tried to empty his pouch today, but states he made a mess. He is leaving either tomorrow or Wednesday. I need him to be able to change his pouching system so I had him change the appliance today. I had him empty his pouch and showed him correctly, then he removed his pouch and correctly measured his stoma, cleaned his skin and applied a new wafer and pouch. I also had him measure and cut a one piece pouching system and place it on the model. I had him use stoma paste, barrier rings on the model and he did the crusting technique on his hand. He did a great job and was very attentive and remember many things from yesterdays session. His stoma is edematous, but smaller than yesterday, 52mm. It is red, moist and producing gas and liquid to pasty effluent. The chiara-stomal skin is intact. The sutures are intact. There is some old dried slough at the 9:00 position of the stoma which will slough off. I gave Herbert several 70mm wafers and pouches as this is what we placed on him this afternoon. I also gave him some one piece Coloplast cut to fit to try. I will hopefully follow up with him in clinic at [facility].
[2018-05-27] MEDS: SIMETHICONE 80 MG TABLET PO (21:17)
--- NOTE | 2018-05-27 21:53 | PC.NURSE ---
SHIFT NOTE A&Ox3, pleasant and cooperative with care. independent with ADLs. walks in hallways frequently. pt had ostomy education done this evening. very eager to be hands-on with ostomy care. c/o minimal pain to abdomen, rated 3/10. midline incision with jason and open to air. stoma swollen and beefy red in color. pt denies any N/V. call light within reach.
[2018-05-28] VITALS (7 sets, daily range): BP systolic 154–164; BP diastolic 90–103; PULSE 66–88; RESP 15–16; TEMP 36.4–36.7; O2SAT 96–98
[2018-05-28] MEDS: PANTOPRAZOLE 20 MG TABLET PO (05:55)
--- NOTE | 2018-05-28 06:33 | PC.NURSE ---
Pt is A and O x 4, HTNsive at times per baseline, other VSS. Pt is eating and drinking, voiding and producing stool and emptying ostomy bag independently. Stoma is red and beefy. Pt denies pain. Pt able to sleep. Pt is independent in room and ambulating in hallways.
[2018-05-28] MEDS: hydroCHLOROthiazide 25 MG TABLET PO (09:40)
[2018-05-28] MEDS: DORZOLAMIDE/TIMOLOL OPHTH 10 ML 1 DROPS EYE-BOTH ×2 (09:40→20:08)
[2018-05-28] MEDS: ENOXAPARIN 40 MG/0.4 ML SYRINGE SUBCUT (09:40)
--- NOTE | 2018-05-28 12:14 | PM.PN.1 ---
Subjective Date Patient Seen: 05/28/18 Time Patient Seen: 12:14 Interval history: Patient denies significant pain. No fever or chills. No nausea or vomiting. Tolerating a diet. Ambulating without difficulty. No dysuria or hematuria. Denies chest pain or shortness of breath. Worked with enterostomal therapist last evening and is improving with regard to self-care. Still has some concerns about adequate changing an application of the appliance. Otherwise feels he is doing well and ambulating without issues. Exam Vital Signs (past 8 hours): - 05/28/18 05:46 05/28/18 08:00 05/28/18 08:31 Temperature 98.1 F 97.8 F Pulse Rate 73 76 Respiratory Rate 16 16 Blood Pressure 154/90 H 159/92 H Pulse Oximetry 96 96 98 Oxygen Delivery Method Room Air Oxygen Flow Rate 0 Narrative Exam Narrative: Well-nourished well-developed male in no acute distress. Resting comfortably in bed. Alert oriented x3. Afebrile and hemodynamically stable without tachycardia. Blood pressure mildly elevated. Chest clear to auscultation bilaterally No crackles or wheezes Abdomen soft and nondistended. He is completely nontender other than minimal discomfort near the incision. No guarding or rebound. Wound is clean, dry, and intact with mild ecchymosis. No erythema or drainage. No hematoma or seroma. Colostomy is pink and viable and mildly decreased in size, but remains edematous. There is normal stool and air in the appliance. Extremities show no clubbing or cyanosis Objective Labs Result Diagrams: 05/25/18 05:44 05/25/18 05:44 Labs: No new laboratory radiographic studies for review Assessment & Plan Plan: Assessment/Plan Narrative: 72-year-old male postoperative day 4 after emergent laparotomy with sigmoid colectomy and formation of descending colostomy who is overall doing well. He still requires some time in the hospital to complete ostomy education and demonstrate appropriate care. Home health nursing is being arranged as well. Continue to be out of bed as tolerated. Regular diet as tolerated. Maintain usual home medications. I suspect he will potentially be able to discharge home tomorrow once the above goals are met and home health is in place. I discussed this with him in detail. Case reviewed with veterans' coordinator. All questions answered to the patient's satisfaction, and he voiced understanding.
[2018-05-28] MEDS: HYDRALAZINE 10 MG TABLET 5 MG PO ×2 (16:33→23:44)
[2018-05-28] MEDS: SIMETHICONE 80 MG TABLET PO ×2 (16:33→20:14)
[2018-05-28] MEDS: HYDROCODONE/ACET 5/325 TABLET 1 TAB PO (20:13)
--- NOTE | 2018-05-28 22:47 | PC.NURSE ---
SHIFT NOTE independent of ADLs. midline abdominal incision with jason, PRATEEK, periwound area slightly bruised. ostomy intact, stoma swollen and beefy red. + BM and flatus. pt very involved with caring for ostomy, showered and changed ostomy with minimal assist from this RN. c/o 5/10 pain to abdomen after ostomy care, administered PRN norco and simethicone chew. pt currently resting. call light within reach.
[2018-05-28] MEDS: ACETAMINOPHEN 325 MG TABLET 650 MG PO (23:46)
[2018-05-29] VITALS (8 sets, daily range): BP systolic 151–173; BP diastolic 86–99; PULSE 65–82; RESP 16; TEMP 36.6; O2SAT 94–98
--- NOTE | 2018-05-29 05:16 | PC.NURSE ---
Pt VSS, A and O x 4, independent in the room. Pt is discharging today to catch a 1355 ferry to [facility], and has priority boarding status. Incision is clean and dry PRATEEK. Pt took 650 mg APAP po for staple pain.
[2018-05-29] MEDS: ACETAMINOPHEN 325 MG TABLET 650 MG PO (06:32)
[2018-05-29] MEDS: PANTOPRAZOLE 20 MG TABLET PO (06:32)
[2018-05-29] MEDS: DORZOLAMIDE/TIMOLOL OPHTH 10 ML 1 DROPS EYE-BOTH (08:12)
[2018-05-29] MEDS: hydroCHLOROthiazide 25 MG TABLET PO (08:13)
[2018-05-29] MEDS: HYDRALAZINE 10 MG TABLET 5 MG PO (08:17)
--- NOTE | 2018-05-29 08:31 | PM.DS.1 ---
History of Present Illness Date Patient Seen: 05/29/18 Time Patient Seen: 08:31 Chief complaint: Constipation x9 days Narrative: 72-year-old male who presented to the emergency department early this afternoon with acute onset of abdominal pain late last evening and progressed throughout the day today. He has ceased passing flatus. He has not had any type of bowel function in the last day or so. He now feels extremely distended and mildly nauseated. He is having crampy diffuse abdominal pain throughout the abdomen. No subjective fever or chills. No chest pain or shortness of breath. He has never had any type of similar episodes in the past. No prior abdominal surgeries as well. Discharge Providers Date of admission: 05/24/18 19:32 Consults: 05/24/18 22:07 Consult to Discharge Planning Routine Comment: 05/25/18 02:46 Consult to Ostomy Specialist Routine Comment: Consulting Provider: Discharge provider: Pelon Stewart MD Discharge Date: 05/29/18 Summary Discharge Diagnosis: 1. Sigmoid volvulus 2. Rigid sigmoidoscopy with inability to decompress volvulus 3. Exploratory laparotomy with sigmoid colectomy and formation of descending end colostomy 4. Hypertension 5. History of colonoscopy in 2018 Hospital Course: Patient was taken to the operating room urgently for the above surgical procedures which he tolerated well. Postoperatively he was returned to the regular surgical floor where he remained afebrile and hemodynamically stable. He did have some mild chronic baseline hypertension that eventually responded to his usual home medication. Pain was well controlled initially with opioid pain medication, but at the time of discharge he was requiring only Tylenol. He is ambulating unassisted. He was seen by the enterostomal therapist and has learned ostomy care adequately for discharge. However, he continues to require some nursing assistance so home health nurse has been arranged, especially since he is essentially alone at his home in [facility]. He was graduated from a clear liquid diet to regular diet which he is tolerating well the time of discharge. His wound is healing nicely without evidence of infectious complications. Stoma is viable and functioning well. He is having normal flatus and stool output per stoma. Because of his overall good condition he is discharged home as above. He will follow up next week in the surgery clinic for staple removal. He has been instructed to call or return sooner, however, for fever, chills, nausea, vomiting, inability to tolerate a diet, lack of bowel function, progressive pain, or any other concerns. Status at Discharge Cognitive/behavioral status at discharge: Alert, oriented x3 Functional status at discharge: independent ambulation Overall status at discharge: patient is progressing back to baseline Time Spent with Patient Less than 30 minutes Exam Vital Signs (past 8 hours): - 05/29/18 02:48 05/29/18 05:40 05/29/18 08:23 Temperature 97.9 F Pulse Rate 82 73 Respiratory Rate 16 Blood Pressure 155/86 H 151/99 H Pulse Oximetry 98 98 Oxygen Delivery Method Room Air Oxygen Flow Rate 0 Narrative Exam Narrative: Well-nourished well-developed male in no acute distress. Alert oriented x3. Resting comfortably in bed. Sclera nonicteric Chest clear to auscultation bilaterally with regular rate and rhythm. No murmurs, gallops, rubs Abdomen soft, nondistended, no masses. Stoma is pink and viable with normal output in the appliance. Wound is clean, dry, and intact with minimal ecchymosis. No hematoma or seroma. No erythema or drainage. [place] are intact. He is minimally but appropriately tender at the incision. No guarding or rebound tenderness. Extremities show no clubbing, cyanosis, or edema Objective Labs Result Diagrams: 05/25/18 05:44 05/25/18 05:44 Labs: No new radiographic studies for review since admission. Discharge Plan Discharge Plan Patient Disposition: Home Health Service Transfer to: Home Health, Other Discharge comment: Home health nurse for ostomy care Discharge Med Rec/Prescriptions Prescriptions: New acetaminophen 325 mg Tablet 650 mg PO Q6HR PRN (Reason: As Needed For Fever/Mild Pain) Qty: 60 RF: 0 hydrocodone-acetaminophen 5-325 mg Tablet 1 tab PO Q4HR PRN (Reason: Pain, Moderate (4-6)) Qty: 20 RF: 0 Continue triamcinolone acetonide 0.1 % cream 1 applic Topical PRN PRN (Reason: Rash) RF: 0 dorzolamide-timolol 22.3-6.8 mg/mL drops 1 drp EYE-BOTH BID RF: 0 hydrochlorothiazide 25 mg tablet 25 mg PO DAILY RF: 0 vitamins A,C,R-cbib-wzwilh [PreserVision AREDS] 7,160-113-100 [id number] Tablet 1 tab PO BID RF: 0 Follow up/Referrals: Pelon Stewart MD [Physician] - 06/01/18 12:00 am (Please call office for exact appointment time) Provider Discharge Instructions Diet: Diet as Tolerated Activity: No lifting more than 20 lb for 3 more weeks May walk as much as desired May climb stairs May ride in vehicle No driving while taking opioid pain medication Cold/Heat Therapy: May apply ice pack to incision as needed for comfort Other treatments: Empty and change colostomy appliance as instructed Skin/Wound/Dressing Care Report to your healthcare provider any signs of infection, such as:: chills, fever, increased pain, unusual drainage and unusual redness Dressing: No dressing necessary Other wound treatment: May shower Do not soak incision and bathtub or pool until further notice Discharge Data Attending Provider: Pelon Stewart Admit Date/Time: 05/24/18 19:32
--- NOTE | 2018-05-29 08:57 | CM.DPC ---
DCP: continued: case received this weekend, EMR reviewed and spoke with Dr. Stewart yesterday afternoon. He confirmed pt would be going home today with RN to follow re ostomy management. Gave referral to [facility] as this is the only agency which services the [facility] and pt lives on [facility]. Spoke with the oncall at the agency. She said a nurse goes one day a week to [place], she is unable to say when this will be until their staff process the referral on Wednesday. The agency will contact the pt re the visit date/time. Discussed all this with pt, gave him contact info for the agency. Clinical info including DC summary, OP report and the 2 progress notes from at home independent call center agent consult Etelvina Mcghee are sent. Pt confirms that Etelvina has given him enough supplies to get started at home...HH will follow up and pt will also follow in clinic prn. Pt says he feels comfortable with the d/c today. He is up and about in room preparing for his d/c.
--- NOTE | 2018-05-29 13:25 | PC.NURSE ---
Day shift: Pt left unit with his spouse and this insurance underwriter sales to private car at approx 1300. He has MD levy. Paperwork is signed and all quesions answered. Pt has all personal belongings as well.
== END 2018-05-29 13:26 | disposition home health service (06) | DRG 330 ==
LOC: ED 16:22 → AC 19:33
PROVIDERS: Admitting Provider Surgery; Emergency Provider Emergency Medicine; Visit Provider Surgery
PROC: 0DJD8ZZ Inspection of Lower Intestinal Tract, Via Natural or Artificial Opening Endoscopic (ICD-10-PCS; CPT 49000; principal; 2018-05-24 20:25)
DX: K56.2 Volvulus (principal); Q43.8 Other specified congenital malformations of intestine; K59.8 Other specified functional intestinal disorders; I10 Essential (primary) hypertension
CPT/HCPCS: 36415; 74177; 80048; 80053; 83605; 83690; 85025; 88307; 94760; 94770; 96365; 96366; 96375; 96376; 99152; 99285; 99291; C9113; J0330; J0360; J1100; J1170; J1650; J2250; J2405; J2704; J3010; J3480; Q9967

== ENCOUNTER 2018-09-21 07:40 | Inpatient (IN) | payer MEDICARE, OTHER, SELFPAY ==
[2018-05-25 02:48] VITALS: BMI 23.8
[2018-07-06 09:48] VITALS: BMI 22.4
[2018-07-11 14:19] VITALS: BMI 23.8
--- NOTE | 2018-09-13 15:10 | DIET.PN ---
Met briefly with pt and to provide pre-surgery education/ERAS protocol. Provided pt with Ensure Pre-Surgery clear drink to be taken morning of surgery (carbo-loading beverage); gave booklet, Enhancing REcovery following Bowel surgery, encouraged to drink Ensure Clear during 2 day clear liquid bowel prep.
[2018-09-21] VITALS (16 sets, daily range): BP systolic 109–152; BP diastolic 55–96; PULSE 70–95; RESP 13–100; TEMP 36–37.3; O2SAT 2–99; BMI 22.4
--- NOTE | 2018-09-21 | PATH_ITS ---
[facility] Accession Number: [id number] . 01 Material submitted: . appendix - APPENDIX . 02 Diagnosis: Appendix: Focal minimal acute periappendicitis (see microscopic description). MRV/09/26/2018 . 02 Electronically signed: . Abhijit Porter MD, Pathologist NPI- [id number] . 01 Gross description: . Received in formalin, labeled with the patient's name and appendix, is an 8.3 cm in length by 0.6 cm in diameter intact lam-brown appendix. The attached lam-brown mesoappendix measures 8.7 x 2.0 x 1.1 cm. The serosa is focally hemorrhagic and no perforation is noted. Sectioning reveals a lumen measuring 0.4 cm in maximal diameter with lam-brown mucosa. No fecalith is identified within the lumen. The resection margin is inked black and the specimen is representatively submitted as follows: A1 - longitudinal section of tip, cross-section of proximal margin and additional cross-sections. (APPLE:[id number]) Cassettes A2-A6 - remainder of appendix. (APPLE:[id number]) /MRV . 02 Microscopic: . Sections are of appendix. The entire appendix has been embedded and examined. There is a minimal acute inflammatory process involving the periappendix region, but actual acute inflammation within the appendix itself is not noted. These changes are nonspecific, but do suggest the possibility of another inflammatory process within the abdomen. Clinical correlation is suggested. . 02 Pathologist provided ICD-10: K35.80 . 02 CPT . 669314 Performed at: [address], [place], [place] [id number] MD Regis Stone MD Phone: [phone] Performed at: 02 [facility] [address] [place] [id number] MD Didi Swift MD Phone: [phone]
[2018-09-21] MEDS: LACTATED RINGERS 1,000 ML 100 ML IV ×4 (08:30→17:55)
--- NOTE | 2018-09-21 09:07 | PM.PREOP ---
Pre-operative Note Interval Note History & Physical reviewed/Exam performed by Physician: Yes Changes to H&P: No H&P completed within 30 days and has changed as indicated here:: H&P done on 09/13
[2018-09-21] MEDS: SODIUM CHLORIDE PR (10:00)
[2018-09-21] MEDS: NEOMYCIN PR (10:00)
[2018-09-21] MEDS: ERYTHROMYCIN PR (10:00)
[2018-09-21] MEDS: PIPERACILLIN-TAZO 3.375 GM/50 ML FROZ.PIGGY IV ×3 (10:09→20:57)
--- NOTE | 2018-09-21 10:56 | SUR.OPER ---
Lithotomy on padded OR bed. Numa Pad Positioner under torso. Head on pillow, arms padded and tucked at sides. Legs secured in padded yellow fins stirrups.
[2018-09-21] MEDS: BUPIVACAINE 0.5% (PF) VIAL 30 ML INJ (11:10)
[2018-09-21] MEDS: fentaNYL 100 MCG/2 ML INJ 50 MCG IV ×2 (16:00→16:05)
[2018-09-21] MEDS: HYDROMORPHONE 2 MG INJ 0.5 MG IV ×2 (16:10→16:15)
--- NOTE | 2018-09-21 17:38 | PM.OP.1 ---
Operative Date/Time/Diagnoses Date of procedure: 09/21/18 Time of procedure: 15:30 Pre-op diagnosis: Colostomy post sigmoid resection for volvulus Post-op diagnosis: same Procedure & Clinicians Procedure: Colostomy closure with resection of a portion of the colon and primary end-to-end anastomosis. Laparoscopic mobilization of the splenic flexure Same procedure as scheduled: Yes Indications: Patient with colostomy for closure. Anesthesia Type: General Operative Notes Findings: Tension free anastomosis created after mobilization of the splenic flexure Closure Type: primary (Except at ostomy site which was left open) Specimen(s): none sent Prosthetic devices, grafts, tissues, transplants, or devices: None Estimated Blood Loss (mL): 150 Procedure in detail: The patient is placed supine on the operating room table and underwent general endotracheal anesthesia. his ostomy bag was removed in the end oversewn with a running 0 Vicryl suture in 2 layers. a Williamson catheter was placed, the patient was placed in low lithotomy any was prepped and draped in usual fashion. a Vi-Drape was placed across the abdomen in order to isolate the ostomy from the midline wound and other wounds. Small incision was made beneath the umbilicus and attempted to carried into the peritoneal cavity however due to adhesions at the site I selected this was quite difficult so I placed a it additional port opening in the upper midline above the umbilicus. incision was made and carried down under direct vision in the peritoneal cavity. Stay sutures of 0 Vicryl were placed in the fascia. an Whitney cannula was inserted. I could now see that I had not actually gone through fascia which had pulled away from the subcu would my initial incision. a 5 mm port was placed here. Adhesions to the anterior abdominal wall were taken down with Harmonic scalpel. These were minimal. If port was placed in left lower quadrant. I mobilized the attachments of the left colon across to the point where felt adequate mobilization was achieved of the splenic flexure and the left colon to the ostomy. There appeared to be plenty of colon length. we then turned attention to the pelvis. I began to laparoscopically dissect out the stump but this proved to be quite difficulty as the colon appeared to have been taken after near the peritoneal reflection and the tissues over at worst a thin sheet of tissue obscuring the details below. Rather than injure any important structures I decided to do this as an open procedure since I would have to open to carry out the anastomosis anyhow. It appeared that the stump was too long to perform an anastomosis with an EEA through the anus. The mobilization I was able to do I pulled the appendix off of what appeared to be the staple line. I decided because of possible injury to the appendix by the dense adhesions that I would do an appendectomy incidentally. Incision was then made in the lower abdomen in the midline and carried down in the peritoneal cavity. the stump was dissected out very carefully and the edge of the colon examined. an incision was made around the ostomy site in the skin and using principally sharp dissection and cautery the colostomy was mobilized completely and returned to the abdomen. there was a large sac consisting of the peristomal hernia adjacent to the colostomy and much of this was dissected out. The length of the colon with mobilization appeared to be adequate to come to the distal stump of colon. I cleaned the edge of a portion of the ostomy and fired the stapling device across it removing a segment of the ostomy that had been in the skin and subcutaneous areas. I then placed a back row of interrupted 3 0 silks between the proximal and the distal and. The suture lines were removed and an inner running layer of 3 0 Vicryl was placed in a Panacea type fashion was placed and an outer completion the layer on the anterior side of 3 0 silk was placed to complete the anastomosis. It appeared to be widely patent by palpation. A clamp had been placed proximally to prevent spillage. It was removed when the inner layer was completed. I now reapplied it and placed rigid sigmoidoscope into the anus. Air was insufflated with the anastomosis under water. There was no evidence of any bubbling. The air was removed the clamp was removed the abdomen was then copiously irrigated with warm saline. hemostasis was achieved. the mesoappendix was easily divided with Harmonic scalpel. Two 0 Vicryl ties were placed at the base of the appendix. Distal portion was clamped and at the appendix transected leaving the 2 ties on the stump. This was done with cautery. the appendix was noted be quite long but quite thin suggesting it was probably fibrosed. I removed much of the sac and freshened the fascial edges where the ostomy had been. I then closed the fascia superior to inferior with interrupted [id number] 1. PDS. Hemostasis was achieved. the midline fascia was closed with a running 1. Maxon double strand suture. occasional interrupted 0 Vicryl was were placed along the way. The subcu was irrigated. Mason were used to close the skin in all areas except for the ostomy site. Three 0 nylons were placed and not tied but left open. The wound was packed with saline gauze. Dressings were applied and the patient was awakened extubated taken recovery room good condition. Complications: none Condition: stable Disposition: PACU
[2018-09-21] MEDS: KETOROLAC 30 MG/ML VIAL IV (19:07)
[2018-09-21] MEDS: GABAPENTIN 300 MG CAPSULE PO (20:54)
[2018-09-21] MEDS: ENOXAPARIN 40 MG/0.4 ML SYRINGE SUBCUT (20:54)
[2018-09-21] MEDS: DORZOLAMIDE/TIMOLOL OPHTH 10 ML 1 DROPS EYE-BOTH (20:55)
[2018-09-22] VITALS (7 sets, daily range): BP systolic 110–150; BP diastolic 57–98; PULSE 71–81; RESP 17–18; TEMP 36.4–36.9; O2SAT 94–99
[2018-09-22] MEDS: KETOROLAC 30 MG/ML VIAL IV ×3 (01:06→23:53)
[2018-09-22] MEDS: PIPERACILLIN-TAZO 3.375 GM/50 ML FROZ.PIGGY IV ×3 (02:54→14:39)
[2018-09-22] MEDS: LACTATED RINGERS 1,000 ML 100 ML IV ×2 (02:55→14:36)
[2018-09-22 06:39] LABS: Add Manual Diff / Slide Review NO; Basophils Absolute Auto 100 /uL (0-100); Basophils Percent Auto 0.7 % (0-2); Eosinophils Absolute Auto 100 /uL (0-450); Eosinophils Percent Auto 1.3 % (2-4); Hematocrit 39.1 % (41-53); Hemoglobin 13.8 g/dL (13.5-17.5); Lymphocytes Absolute Auto 1500 /uL (1100-4500); Lymphocytes Percent Auto 14.2 % (25-40); Mean Corpuscular HGB Conc 35.3 % (30-36); Mean Corpuscular Hemoglobin 33.1 PG (26-34); Monocytes Absolute Auto 1300 /uL (0-900); Monocytes Percent Auto 11.7 % (3-14); Neutrophils Absolute Auto 7700 /uL (1500-7000); Neutrophils Percent Auto 72.1 % (50-75); Platelet Count 226 X10^3/uL (150-400); Red Blood Cell Count 4.17 X10^6/uL (4.5-5.9); Red Cell Distribution Width 12.9 % (11.6-14.8); White Blood Cell Count 10.7 X10^3/uL (4.5-11.0)
[2018-09-22 06:45] LABS: Alanine Aminotransferase 23 IU/L (21-72); Albumin 3.7 g/dL (3.5-5.0); Albumin Globulin Ratio 1.5 (1.0-2.8); Alkaline Phosphatase 39 U/L (38-126); Aspartate Aminotransferase 24 IU/L (17-59); BUN Creatinine Ratio 16.3 (6-22); Bilirubin Total 1.1 mg/dL (0.2-1.3); Blood Urea Nitrogen 13 mg/dL (9-20); Calcium 8.7 mg/dL (8.4-10.2); Carbon Dioxide 30 mmol/L (22-32); Chloride 92 mmol/L (98-107); Estimated Glomerular Filt Rate > 60.0 mL/min (>60); Globulin 2.5 g/dL (1.7-4.1); Glucose 103 mg/dL (80-110); HEMOLYSIS < 15 (0-50); Sodium 131 mmol/L (137-145); Total Protein 6.2 g/dL (6.3-8.2)
[2018-09-22] MEDS: DORZOLAMIDE/TIMOLOL OPHTH 10 ML 1 DROPS EYE-BOTH ×2 (09:25→20:27)
[2018-09-22] MEDS: ENOXAPARIN 40 MG/0.4 ML SYRINGE SUBCUT (11:19)
[2018-09-22] MEDS: GABAPENTIN 300 MG CAPSULE PO ×2 (11:19→20:27)
--- NOTE | 2018-09-22 11:50 | PC.NURSE ---
Day Shift- Abd dressing removed after Dr. Mendez assessment around 1120. Midline incision X2 and LLQ small incision well approximated with jason intact, no drainage noted, no S/S of infection. LUQ incision of old ostomy site has sutures intact. Packing removed using NS. Cleansed all areas with NS, pat dry with 4X4 gauze. 2-4X4 gauze moistened with NS and repacked wound. Covered all incisions with 4X4 gauze and 2 abd pads, secured with Paper tape. Pt tolerated procedure well. Reports pain 3/10. Pt had 1 large liquid brown BM, no void post urinary catheter removal yet. OOB to chair this AM, ambulated in halls with WEBMETHODS CONSULTANT SBA for 2 laps around [facility]. Tolerated well with steady gait.
--- NOTE | 2018-09-22 15:29 | CM.DANOTE ---
Discharge Planning/Care Management DCP: assessment: case received, EMR reviewed. Am familiar with pt from his last admission to in May 2018. He did d/c home at that time after surgery with Dr. Stewart that included a temporary colostomy. He admitted to care of General Surgeon: Dr. Mendez yesterday for a planned reversal of the colostomy. Payer: Medicare and [employer]. INPT admission status: confirmed by UR RN Alva Pt today is up and mobilizing in the halls with MEDICAL DEVICE ENGINEER. Williamson is out, void still pending. + for large liquid brown stool. Dr. Mendez saw pt this afternoon and surgical wound is being changed and packed by the RN. P: pt identifies his pre-op plan as home when stable for same. He lives with his in [place] on [address] and is at baseline functionally independent in the community. : Tamra Robles. [phone] or [phone]. DCP team will be following to check in with pt and assist prn with any d/c needs that may arise. CM Discharge Assessment Start: 09/22/18 15:28 Freq: Status: Active Protocol: Document 09/22/18 15:28 ITV (Rec: 09/22/18 15:29 ITV [id number]) Discharge Planning Assessment Advance Directives? No Advance Directives on File No History Provided By Medical Record Has Patient been admitted in last 30 No days? Prior Living Arrangements House Household Members spouse Review Status In Process Next Review Type Continued Stay Review Pre-Anesthesia Assessment Start: 07/06/18 09:48 Freq: Status: Complete Protocol: Document 07/06/18 09:48 CAB (Rec: 07/06/18 10:18 CAB [id number]) Pre-Anesthesia Assessment Patient Also Known As (SONIA) Jerrod Patient Information Reviewed Via Phone Assessment Assessment Completed With Patient Primary Care Provider Jasmyne Vuong Seen Specialist in Last 12 Months Yes Specialist Seen General surgeon Primary Language Guamanian Technical Communicator Required No Height 185.42 cm Weight 77.111 kg Body Mass Index (BMI) 22.4 Hearing Ability Normal Visual Impairment No Limitations Visual Assist None Dentition Type Teeth, Natural Present Teeth, Missing Barriers to Learning None Other Aids No Hx Anesthesia Reactions No Hx Family Anesthesia Reaction No Hx Malignant Hyperthermia No Hx Blood Transfusions No Anesthesia Review Requested No Blackjack Dealer No alcohol intake current alcohol intake frequency 0-2 drinks per day Smoking Status Never smoker Substance Use Type does not use Pain Present Denied Pain History of Falling (Recent or History of No ) Patient is completely paralyzed or No completely immobile Mental Status Oriented to own ability Is patient on oxygen? No Does patient have WILSON/SOB No Hx Sleep Apnea No Currently Taking a Beta Carla No Can You Climb a Flight of Stairs Without Yes SOB Hx Chest Pain No Hx SOB No Hx Syncope or Dizziness No Anti-Coagulant Therapy No Has a Maintenance Tech No Cardiac Testing No Hx Pacemaker/ICD No Pacemaker Rep Required? No Cardiac Clearance Received Not Applicable Diet Type At Home Regular dysphagia No Urinary Catheter Present No Hx Urinary Self Catheterization No Diabetes No Hx Drug Resistant Organism No Presence of External or Internal Medical Yes: Colostomy Devices Have you traveled outside the [facility] in the last 30 days? Marital Status Lives With spouse Prior Living Arrangements House Number of Floors (Floors) One Floor Number of Stairs To Enter/Railing? none Support System Friend(s) Spouse Patient Discharge Plan Description Return Home Comment Pt advised 1 week length of stay per surgeon's office Feels Safe in Current Environment Yes Been Physically Hurt or Threatened By a No Person in Current Environment Do you have thoughts of harming yourself None or others? Are you currently considering suicide? No Do you have a plan to hurt yourself or No Plan others? Do You Have Any Spiritual Beliefs That No May Affect Your HC Choices? Do You Have Any Cultural Practices That No May Affect Your HC Choices? Spiritual Referral None Who Can We Speak to About Patient's Care Family, friends Identifying Code for Release of Patient Declines to issue Information Health Care Proxy/Next of Kin Tamra Robles () Health Care Proxy or [phone] Emergency Contact Name Tamra () or Sandie Valles ( neighbor) Emergency Contact Phone Number Tamra: [phone] Sandie: [phone] Advance Directives? No: Declines further information Advance Directives on File No Power of Plumbing And Heating Contractor No PAC Instructions Durable medical equipment Medications to take/avoid No ETOH/petroleum product on skin DOS Post-op transportation Sturdy shoes/comfortable clothes Do not bring valuables and remove jewelry
--- NOTE | 2018-09-22 17:25 | PM.PNPO.1 ---
Subjective Date Patient Seen: 09/22/18 Time Patient Seen: 12:25 Interval history: Patient feeling well. Had a large bowel movement (liquid). Not really having much in the way of pain LEs he moves around. Breathing well. No cough. Exam Vital Signs (past 8 hours): - 09/22/18 11:13 09/22/18 15:29 Temperature 97.7 F 97.9 F Pulse Rate 75 81 Respiratory Rate 17 18 Blood Pressure 123/73 150/98 H Pulse Oximetry 97 96 Fraction of Inspired Oxygen 21 Oxygen Delivery Method Room Air Oxygen Flow Rate 0 Narrative Exam Narrative: Lungs are clear to auscultation. All of his wounds look fine. I removed the dressings and looked at the op ostomy site. everything looked healthy. No cellulitis. Objective Labs Result Diagrams: 09/22/18 06:13 09/22/18 06:13 Labs: Laboratory Results - last 24 hr 09/22/18 09/22/18 06:13 06:13 WBC 10.7 RBC 4.17 L Hgb 13.8 Hct 39.1 L MCV 94.0 MCH 33.1 MCHC 35.3 RDW 12.9 Plt Count 226 Neut % (Auto) 72.1 Lymph % (Auto) 14.2 L [place] % (Auto) 11.7 Eos % (Auto) 1.3 L Baso % (Auto) 0.7 Neut # (Auto) 7700 H Lymph # (Auto) 1500 [place] # (Auto) 1300 H Eos # (Auto) 100 Baso # (Auto) 100 Sodium 131 L Potassium 4.0 Chloride 92 L Carbon Dioxide 30 BUN 13 Creatinine 0.80 Estimated GFR > 60.0 BUN/Creatinine Ratio 16.3 Glucose 103 Calcium 8.7 Total Bilirubin 1.1 AST 24 ALT 23 Alkaline Phosphatase 39 Total Protein 6.2 L Albumin 3.7 Globulin 2.5 Albumin/Globulin Ratio 1.5 Assessment & Plan Post-op Postoperative Procedures Operation Date: 07/19/18 07:45 <No data on this case meets the specified criteria> Operation Date: 09/21/18 09:15 Actual Procedures Side Surgeon p Laparoscopically Assisted Colostomy closure Ochoa Mendez MD Postoperative day: 1 Postoperative status: doing well Postoperative plan narrative: Start p.o. intake cautiously. Have continued IV antibiotics due the fact it was dealing with an infected area/ostomy site. we will stop some this afternoon. Continue DVT prophylaxis. Continue home eyedrops. Quality VTE Deep Vein Thrombosis/Pulmonary Embolism Present on Admission: No
[2018-09-22] MEDS: DEXTROSE 5%-0.45% NS 1,000 ML 100 ML IV (18:13)
[2018-09-23 04:08] VITALS: BP 124/54; PULSE 69; RESP 16; TEMP 36.8; O2SAT 95
[2018-09-23] MEDS: DEXTROSE 5%-0.45% NS 1,000 ML 100 ML IV ×2 (04:13→14:30)
--- NOTE | 2018-09-23 06:36 | PC.NURSE ---
Denies any pain & nausea this morning. Medicated with 30 mg. of Toradol IVP x1 @ 2353. Formed stool & noted small amount of old blood. Reports I also had hemorrhoid. Will monitor.
[2018-09-23 08:37] VITALS: BP 141/79; PULSE 71; RESP 15; TEMP 37.1; O2SAT 95
[2018-09-23] MEDS: KETOROLAC 30 MG/ML VIAL IV ×3 (08:57→23:40)
[2018-09-23] MEDS: ENOXAPARIN 40 MG/0.4 ML SYRINGE SUBCUT (08:59)
[2018-09-23] MEDS: GABAPENTIN 300 MG CAPSULE PO ×2 (09:03→20:43)
[2018-09-23] MEDS: DORZOLAMIDE/TIMOLOL OPHTH 10 ML 1 DROPS EYE-BOTH ×2 (09:04→20:43)
--- NOTE | 2018-09-23 11:39 | PC.NURSE ---
Day Shift- Pt's pain controlled with prn IV Toradol. Pain 4-5/10 when given and upon reassessment was 2/10. IVF infusing well to right AC PIV. Tolerating sips of water and cranberry juice. Aware to go slow and have sips. Denies nausea, States is belching, had BM on maintenance technician 3rd shift. Abd soft, slight tender with dressing change. Slightly more distention today to midline proximal incision area, abd remains soft. Incisions X3 well approximated with jason intact. Dressing removed for large amount of bloody drainage. Old ostomy site packing removed with some difficulty, NS used to assist in removal, no great discomfort to pt. Skin cleansed with NS, pat dry. 2-4X4 gauze moistened with NS and packed into old ostomy site. Covered with 4X4 gauze, and 3 abd pads, secured with paper tape. Overall tolerated well. Pt ambulating in halls indep with steady gait, walks with IV pole. Did 1 lap around unit. Plan for at least 4 walks in hallway each day.
[2018-09-23 11:55] VITALS: BP 132/71; PULSE 64; RESP 16; TEMP 36.9; O2SAT 96
[2018-09-23 15:36] VITALS: BP 143/79; PULSE 71; RESP 18; TEMP 36.6; O2SAT 97
[2018-09-23 20:31] VITALS: BP 139/80; PULSE 80; RESP 19; TEMP 37; O2SAT 98
[2018-09-24 00:45] VITALS: BP 156/72; PULSE 72; RESP 20; TEMP 37.1; O2SAT 98
[2018-09-24 05:25] VITALS: BP 131/79; PULSE 70; RESP 16; TEMP 36.6; O2SAT 98
[2018-09-24] MEDS: GABAPENTIN 300 MG CAPSULE PO ×2 (09:11→20:18)
[2018-09-24] MEDS: KETOROLAC 30 MG/ML VIAL IV ×2 (09:11→18:00)
[2018-09-24] MEDS: ENOXAPARIN 40 MG/0.4 ML SYRINGE SUBCUT (09:11)
[2018-09-24] MEDS: DORZOLAMIDE/TIMOLOL OPHTH 10 ML 1 DROPS EYE-BOTH ×2 (09:11→20:18)
[2018-09-24 09:16] VITALS: BP 150/86; PULSE 80; RESP 16; TEMP 36.5; O2SAT 99
--- NOTE | 2018-09-24 11:17 | PM.PN.1 ---
Subjective Date Patient Seen: 09/24/18 Time Patient Seen: 11:17 Interval history: Patient has minimal abdominal discomfort. He is passing flatus and having liquid stools. He is tolerating a clear liquid diet with no nausea or vomiting. Exam Vital Signs (past 8 hours): - 09/24/18 05:25 09/24/18 09:16 Temperature 97.8 F 97.7 F Pulse Rate 70 80 Respiratory Rate 16 16 Blood Pressure 131/79 150/86 H Pulse Oximetry 98 99 Fraction of Inspired Oxygen 21 Oxygen Delivery Method Room Air Oxygen Flow Rate 0 Narrative Exam Narrative: jadennt is alert and oriented. afebrile. Abdomen is soft I inspected all the incisions. there is no sign of infection. Nurses cleaning the wounds and dressing the areas. Objective Labs Result Diagrams: 09/22/18 06:13 09/22/18 06:13 Assessment & Plan Assessment & Plan narrative: Patient recovering nicely from colostomy closure with restitution of GI function. I will advance him to a full liquid diet today. Stop his IV fluids. He is ambulating nicely in the halls. Wounds are healing well. Quality VTE Deep Vein Thrombosis/Pulmonary Embolism Present on Admission: No
[2018-09-24 11:56] VITALS: BP 147/94; PULSE 66; RESP 17; TEMP 36.6; O2SAT 97
--- NOTE | 2018-09-24 11:58 | PC.NURSE ---
Dressing to ostomy reversal site changed. Cleansed with saline and wet to dry gauze dressing replaced, covered with ABD overlay pads and papertape. Patient tolerated well. SLIV. Start full liquid diet per orders.
[2018-09-24 17:32] VITALS: BP 154/72; PULSE 72; RESP 19; TEMP 37.1; O2SAT 99
[2018-09-25] VITALS: BP 154/81; PULSE 72; RESP 18; TEMP 36.7; O2SAT 96
[2018-09-25] MEDS: KETOROLAC 30 MG/ML VIAL IV ×2 (00:39→08:10)
[2018-09-25] MEDS: SODIUM CHLORIDE 0.9% FLUSH 10 ML IV ×3 (00:39→20:41)
[2018-09-25 07:54] VITALS: BP 143/86; PULSE 72; RESP 16; TEMP 36.7; O2SAT 97
[2018-09-25] MEDS: GABAPENTIN 300 MG CAPSULE PO ×2 (08:05→20:41)
[2018-09-25] MEDS: DORZOLAMIDE/TIMOLOL OPHTH 10 ML 1 DROPS EYE-BOTH ×2 (08:05→20:41)
[2018-09-25] MEDS: ENOXAPARIN 40 MG/0.4 ML SYRINGE SUBCUT (08:05)
--- NOTE | 2018-09-25 10:00 | PM.PN.1 ---
Subjective Date Patient Seen: 09/25/18 Time Patient Seen: 10:00 Interval history: Patient is now several days post colostomy closure. I think this is day 3. Patient is passing flatus and having bowel movements. He he is tolerating a full liquid diet. Has no abdominal pain no nausea no vomiting. Exam Vital Signs (past 8 hours): - 09/25/18 07:54 Temperature 98.1 F Pulse Rate 72 Respiratory Rate 16 Blood Pressure 143/86 H Pulse Oximetry 97 Fraction of Inspired Oxygen 21 Oxygen Delivery Method Room Air Oxygen Flow Rate 0 Narrative Exam Narrative: Patient is afebrile with stable vital signs. Abdomen is soft and nontender. Incisions are healing beautifully. Ostomy site has no cellulitis. Objective Labs Result Diagrams: 09/22/18 06:13 09/22/18 06:13 Assessment & Plan Assessment & Plan narrative: Patient is tolerating a full liquid diet post colostomy closure with GI function. Today he will advance to diet as tolerated. He is ambulating nicely in the [place]. Patient should be able to be discharged in the next day or 2. Quality VTE Deep Vein Thrombosis/Pulmonary Embolism Present on Admission: No
[2018-09-25 10:25] VITALS: BP 158/85; PULSE 59; RESP 16; TEMP 37; O2SAT 98
--- NOTE | 2018-09-25 13:27 | PC.NURSE ---
AM NOTE - pt is alert, abd discomfort 5 on scale 0/10, given toradol iv this am and providing adequate relief, denies nausea, passing flatus and has had liq stool, dsg removed by Dr. Campa this am and RN then lightly rinsed with normal saline and removed w/d packing, wound bed dark pink with serosang drainage, replaced with w/d and then 4x4 w/abd pad over, Dr. Mendez came in later afternoon and then closed up wound, stapled midline incision intact with surrounding bruising to abd area and also his penis.
[2018-09-25 15:37] VITALS: BP 145/94; PULSE 70; RESP 18; TEMP 36.8; O2SAT 98
--- NOTE | 2018-09-25 16:26 | PC.NURSE ---
evening shift note- Patient alert and oriented and able to make needs known to staff. Patient pleasent, calm, and cooperative with care. No complaints of pain or discomfort at this time. Patient tolerating soft diet without issue. Patient reports + flatus. Bowel tones present. No complaints of n/v. Patient independent. safety measures in place. Patient agrees to as needed. call lizama and phone within reach. will continue to monitor.
[2018-09-25 20:00] VITALS: BP 142/99; PULSE 75; RESP 16; TEMP 37; O2SAT 98
[2018-09-26] VITALS (7 sets, daily range): BP systolic 132–175; BP diastolic 84–109; PULSE 64–83; RESP 16–18; TEMP 36.2–36.8; O2SAT 96–99
[2018-09-26] MEDS: KETOROLAC 30 MG/ML VIAL IV (00:08)
[2018-09-26] MEDS: SODIUM CHLORIDE 0.9% FLUSH 10 ML IV ×3 (00:09→22:06)
[2018-09-26] MEDS: GABAPENTIN 300 MG CAPSULE PO ×2 (07:54→22:06)
[2018-09-26] MEDS: ENOXAPARIN 40 MG/0.4 ML SYRINGE SUBCUT (07:54)
[2018-09-26] MEDS: DORZOLAMIDE/TIMOLOL OPHTH 10 ML 1 DROPS EYE-BOTH ×2 (07:54→22:07)
--- NOTE | 2018-09-26 11:27 | PM.PN.1 ---
Subjective Date Patient Seen: 09/26/18 Time Patient Seen: 11:27 Interval history: Doing well, chilango diet, bowels moving. Pt walking. No signs of infection at incisions. Exam Vital Signs (past 8 hours): - 09/26/18 07:30 Temperature 97.6 F Pulse Rate 64 Respiratory Rate 18 Blood Pressure 141/84 H Pulse Oximetry 96 Fraction of Inspired Oxygen 21 Oxygen Delivery Method Room Air Oxygen Flow Rate 0 Narrative Exam Narrative: AAO, NAD, male of healthy weight EOMI, MMM, no scleral icterus unlabored RA soft, nt/nd, bruising of midline inc, inc c/d/i MAEW Objective Labs Result Diagrams: 09/22/18 06:13 09/22/18 06:13 Assessment & Plan Assessment & Plan narrative: - s/p colostomy closure --> inc c/d/i, no signs of infection; monitor - chilango reg diet --> discussed diet precautions/ plan - ambulate - AF, VSS - pt lives far and is uncomfortable going home today, reasonable to continue to watch wounds and ensure no issues with diet Quality VTE Deep Vein Thrombosis/Pulmonary Embolism Present on Admission: No
--- NOTE | 2018-09-26 13:11 | PC.NURSE ---
Patient up in room and halls ambulating independently. able to shower today per MD. INcisions now WINDROWER OPERATOR, with sutures/jason, with moderate bruising noted. Tolerating soft, low fiber diet. Denies n/v. Voiding and passing soft stools without difficulty. Anticipate discharge to home tomorrow morning. Call light within reach.
--- NOTE | 2018-09-26 14:34 | CM.DPC ---
DCP: continued: case again received and EMR for last few days reviewed. Surgeon Dr. Rowland was here to see pt today and has noted pt's concerns re lack of readiness to d/c back to [facility] late in the day and has ok'd him to stay until tomorrow with d/c likely at that time. UR MICHELLE Stacy reports to CM team that this is an avoidable day as pt is medically stable for d/c today as per his UR guidelines and he will process this accordingly. Met now with pt and his Tamra in followup after conferring with MICHELLE Jernigan. Pt confirms he discussed the d/c with Dr. Rowland and that she in turn conferred with Dr. Mendez by phone. Pt says he expressed concerns as the ferry ride is [place]. The ferry options (one boat is down) are currently 1030 and 1530 and pt notes his energy markedly diminishes in the afternoon. He said that both of the surgeons acknowledged his concerns and he is hopeful that all his d/c orders will be in place early tomorrow so he can be in the ferry line by 0930. Priority Board will be completed tomorrow by [facility] once the d/c order is in place. Requested that [facility] Bridgette present OJ #2 to pt this afternoon in prep for this and so that he remains aware of his appeal rights. Will follow up tomorrow.
[2018-09-27] MEDS: KETOROLAC 30 MG/ML VIAL IV ×2 (00:30→08:18)
--- NOTE | 2018-09-27 07:31 | PC.NURSE ---
Addendum entered by Trish Stevens R.N. 09/27/18 09:31: reviewed d/c instructions with pt and , s/sx infection, no lifting more then 10lb, diet and activity as tolerated, reviewed wound care. placed dressing over incisions so does not rub on pants, pt aware of f/u with md in 1 week. reviewed medications with last dose, answered all questions and concerns, pt ambulated with MOLDING PROCESS TECHNICIAN to spouses care. Has priority pass to [place]. Original Note: day shift pt is A&O able to make needs known. denies any pain at this time. + flatus and +BT x4, denies any nausea and tolerating diet. Pt is eger to go home today and would like to catch the 10:30 ferry.
[2018-09-27 07:50] VITALS: BP 167/77; PULSE 75; RESP 18; TEMP 36.2; O2SAT 97
--- NOTE | 2018-09-27 08:18 | CM.DPC ---
DCP: continued: Spoke now with RN Trish. She is aware that pt wants to be on the 1030 ferry to [place] today. She has spoken by phone with Dr. Mendez who is putting in orders for the d/c home. Confirmed that JOSE Nettleshy is getting priority board in place for pt. P: home today as per plan
[2018-09-27] MEDS: SODIUM CHLORIDE 0.9% FLUSH 10 ML IV (08:19)
[2018-09-27] MEDS: GABAPENTIN 300 MG CAPSULE PO (08:19)
[2018-09-27] MEDS: DORZOLAMIDE/TIMOLOL OPHTH 10 ML 1 DROPS EYE-BOTH (08:19)
[2018-09-27] MEDS: ENOXAPARIN 40 MG/0.4 ML SYRINGE SUBCUT (08:19)
--- NOTE | 2018-09-28 22:03 | PM.DS.1 ---
History of Present Illness Date Patient Seen: 09/27/18 Time Patient Seen: 08:50 Chief complaint: reversal of colostomy [id number] Narrative: Patient is a gentleman brought in for colostomy closure. 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 Discharge Providers Date of admission: 09/21/18 07:40 Discharge Date: 09/27/18 Primary care physician: DIONE Milan Consults: 09/21/18 16:41 Consult to Discharge Planning Routine Comment: Discharge provider: Ochoa Mendez MD Summary Discharge Diagnosis: History of and colostomy and Cathie's as part of treatment for sigmoid volvulus Glaucoma chronic Hypertension essential chronic Mild acute anemia most likely due to fluid retention and 3rd spacing. The patient had very minimal blood loss during his operation though that may account for some of the anemia. Hospital Course: Patient underwent colostomy closure. his postoperative course was smooth. He began diet and had early return of bowel function. The day prior to discharge patient appeared to have additional bruising of his abdominal wall which had been be monitored. Also, he had just had a wound closed in a delayed fashion the day before. There was concerned that it had not been observed long enough to determine if cellulitis was going to develop. Therefore he was kept an additional day to watch these 2 issues. The morning of discharge his wound looked fine and his bleeding around his op Sites appeared to have stabilized. There was still extensive bruising but it had not appear to increased overnight. He was discharged on a general diet to follow up in the office for staple removal. Status at Discharge Cognitive/behavioral status at discharge: oriented Functional status at discharge: independent ambulation Overall status at discharge: patient is progressing back to baseline Exam Vital Signs (past 8 hours): Fraction of Inspired Oxygen 21 Oxygen Delivery Method Room Air Oxygen Flow Rate 0 Objective Labs Result Diagrams: 09/22/18 06:13 09/22/18 06:13 Discharge Plan Discharge Plan Patient Disposition: Home Discharge Med Rec/Prescriptions Prescriptions: New ibuprofen 600 mg tablet 600 mg PO TID PRN (Reason: pain) Qty: 20 RF: 0 Continued erythromycin 500 mg tablet See Rx Instructions PO .COMPLEX Qty: 6 RF: 0 triamcinolone acetonide 0.1 % cream 1 applic Topical PRN PRN (Reason: Rash) RF: 0 dorzolamide-timolol 22.3-6.8 mg/mL drops 1 drp EYE-BOTH BID RF: 0 hydrochlorothiazide 25 mg tablet 25 mg PO DAILY RF: 0 PreserVision AREDS-2 [id number] [id number]-[id number]-gz-mg Capsule 1 tab PO BID RF: 0 Follow up/Referrals: Ochoa Mendez MD [Physician] - 1 Week (Call my office to schedule a follow-up for early next week.[phone]) Jasmyne Vuong ARNP [Primary Care Provider] - Provider Discharge Instructions Diet: Diet as Tolerated Activity: Do not lift over 10 lb strain or push heavy objects. Do not drive into your pain free off medication. Do not use a tub or pool for at least 2 weeks. Skin/Wound/Dressing Care Report to your healthcare provider any signs of infection, such as:: chills, fever, night sweats, increased pain, unusual drainage and unusual redness Dressing: You may remove dressings to shower. Keep gauze over the old ostomy site until it stops draining. Visit Report/Discharge Packet Instructions: Low-Fiber/Low-Residue Diet, DI for Postoperative Pain, DI for Colostomy or Ileostomy Reversal Stand Alone Forms: Surgery Discharge Discharge Data Primary Care Provider: Jasmyne Vuong Attending Provider: Ochoa Mendez Admit Date/Time: 09/21/18 07:40 Discharges patient from system. Discharge Date/Time: 09/27/18 09:30 Quality VTE Deep Vein Thrombosis/Pulmonary Embolism Present on Admission: No
--- NOTE | 2018-09-28 22:06 | P.DS_ITS ---
History of Present Illness Date Patient Seen: 09/27/18 Time Patient Seen: 08:50 Chief complaint: reversal of colostomy [id number] Narrative: Patient is a gentleman brought in for colostomy closure. He had a history of sigmoid volvulus that required an emergency operation with an end- colostomy sigmoid resection and Cathie's procedure. Discharge Providers Date of admission: 09/21/18 07:40 Discharge Date: 09/27/18 Primary care physician: DIONE Milan Consults: 09/21/18 16:41 Consult to Discharge Planning Routine Comment: Discharge provider: Ochoa Mendez MD Summary Discharge Diagnosis: History of and colostomy and Cathie's as part of treatment for sigmoid volvulus Glaucoma chronic Hypertension essential chronic Mild acute anemia most likely due to fluid retention and 3rd spacing. The patient had very minimal blood loss during his operation though that may account for some of the anemia. Hospital Course: Patient underwent colostomy closure. his postoperative course was smooth. He began diet and had early return of bowel function. The day prior to discharge patient appeared to have additional bruising of his abdominal wall which had been be monitored. Also, he had just had a wound closed in a delayed fashion the day before. There was concerned that it had not been obse rved long enough to determine if cellulitis was going to develop. Therefore he was kept an additional day to watch these 2 issues. The morning of discharge his wound looked fine and his bleeding around his op Sites appeared to have stabilized. There was still extensive bruising but it had not appear to increased overnight. He was discharged on a general diet to follow up in the office for staple removal. Status at Discharge Cognitive/behavioral status at discharge: oriented Functional status at discharge: independent ambulation Overall status at discharge: patient is progressing back to baseline Exam Vital Signs (past 8 hours): Fraction of Inspired Oxygen 21 Oxygen Delivery Method Room Air Oxygen Flow Rate 0 Objective Labs Result Diagrams: 09/22/18 06:13 09/22/18 06:13 Discharge Plan Discharge Plan Patient Disposition: Home Discharge Med Rec/Prescriptions Prescriptions: New ibuprofen 600 mg tablet 600 mg PO TID PRN (Reason: pain) Qty: 20 RF: 0 Continued erythromycin 500 mg tablet See Rx Instructions PO .COMPLEX Qty: 6 RF: 0 triamcinolone acetonide 0.1 % cream 1 applic Topical PRN PRN (Reason: Rash) RF: 0 dorzolamide-timolol 22.3-6.8 mg/mL drops 1 drp EYE-BOTH BID RF: 0 hydrochlorothiazide 25 mg tablet 25 mg PO DAILY RF: 0 PreserVision AREDS-2 [id number]-[id number]-gb-mg Capsule 1 tab PO BID RF: 0 Follow up/Referrals: Ochoa Mendez MD [Physician] - 1 Week (Call my office to schedule a follow-up for early next week.[phone]) Jasmyne Vuong ARNP [Primary Care Provider] - Provider Discharge Instructions Diet: Diet as Tolerated Activity: Do not lift over 10 lb strain or push heavy objects. Do not drive into your pain free off medication. Do not use a tub or pool for at least 2 weeks. Skin/Wound/Dressing Care Report to your healthcare provider any signs of infection, such as:: chills, fever, night sweats, increased pain, unusual drainage and unusual redness Dressing: You may remove dressings to shower. Keep gauze over the old ostomy site until it stops draining. Visit Report/Discharge Packet Instructions: Low-Fiber/Low-Residue Diet, DI for Postoperative Pain, DI for Colostomy or Ileostomy Reversal Stand Alone Forms: Surgery Discharge Discharge Data Primary Care Provider: Jasmyne Vuong Attending Provider: Ochoa Mendez Admit Date/Time: 09/21/18 07:40 Discharges patient from system. Discharge Date/Time: 09/27/18 09:30 Quality VTE Deep Vein Thrombosis/Pulmonary Embolism Present on Admission: No
== END 2018-09-27 09:30 | disposition home or self-care (01) | DRG 330 ==
PROVIDERS: Admitting Provider Specialist; PCP Nurse Practitioner Family; Visit Provider Specialist
PROC: 0DTE0ZZ Resection of Large Intestine, Open Approach (ICD-10-PCS; principal; 2018-09-21 09:15)
DX: Z43.3 Encounter for attention to colostomy (principal); K94.09 Other complications of colostomy; K43.5 Parastomal hernia without obstruction or gangrene; I10 Essential (primary) hypertension; H40.9 Unspecified glaucoma; D64.9 Anemia, unspecified
CPT/HCPCS: 36415; 44139; 44626; 80053; 85025; 88304; 94760; 94762; J1100; J1170; J1650; J1885; J2405; J2543; J2704; J3010

== ENCOUNTER → 2019-03-01 13:38 | Outpatient (CLI) | payer MEDICARE, OTHER, SELFPAY ==
[2018-10-04 13:45] VITALS: BMI 22.4
--- NOTE | 2019-03-01 13:40 | DI.CT.S_ITS ---
PROCEDURE: CT ABDOMEN PELVIS WO CON INDICATIONS: r/o abd wall hernia TECHNIQUE: Noncontrast 5 mm thick sections acquired from the diaphragms to the symphysis. 5 mm coronal and sagittal reformats were then performed. For radiation dose reduction, the following was used: automated exposure control, adjustment of mA and/or kV according to patient size. COMPARISON: None. FINDINGS: Image quality: Excellent. ABDOMEN: Lung bases: Lung bases are clear. Heart size is normal. Solid organs: Liver is normal in size. Gallbladder is within normal limits. Pancreas is normal in contours. Spleen is normal in size. No adrenal nodules. Kidneys are normal in size, without hydronephrosis or nephrolithiasis. Large right parapelvic renal cyst is again seen and unchanged. Peritoneum and bowel: Unenhanced bowel loops show markedly distended gastric lumen. No abnormal small bowel wall thickening or colonic wall thickening. Fecal stasis throughout the colon is seen. No free fluid or free air. Nodes and vessels: No retroperitoneal or mesenteric adenopathy by size criteria. Aorta and inferior vena cava are normal in caliber. Miscellaneous: There is a small ventral hernia measures 1.8 cm in width in the upper to midabdomen containing fat only. More inferiorly, there is a moderate-sized supraumbilical hernia measures 5 cm in width and 4.7 cm in craniocaudal dimension contain a short segment of small bowel loop. PELVIS: Genitourinary: Bladder wall thickness is normal. Miscellaneous: No inguinal hernias or adenopathy. Bones: No suspicious bony lesions. No vertebral body compression fractures. IMPRESSION: 1. Small ventral hernia containing fat only. Moderate-sized supraumbilical hernia containing a short segment of small bowel loop. No evidence of incarceration or bowel obstruction. 2. Markedly distended gastric lumen, suggestive of gastroparesis. No evidence of bowel obstruction. No small bowel or colon wall thickening. Constipation. Dictated by: Willis Hamm M.D. on 03/01/2019 at 14:45 Approved by: Willis Hamm M.D. on 03/01/2019 at 14:56
== END ==
PROVIDERS: PCP Family Medicine; Visit Provider Specialist
DX: R19.04 Left lower quadrant abdominal swelling, mass and lump (principal); K43.9 Ventral hernia without obstruction or gangrene; K42.9 Umbilical hernia without obstruction or gangrene; N28.1 Cyst of kidney, acquired; K59.00 Constipation, unspecified
CPT/HCPCS: 74176; 99212

== ENCOUNTER 2019-03-27 08:10 | Day surgery (SDC) | payer MEDICARE, OTHER, SELFPAY ==
[2018-10-04 13:45] VITALS: BMI 22.4
[2019-03-23 14:37] VITALS: BMI 23.3
[2019-03-27] VITALS (14 sets, daily range): BP systolic 126–185; BP diastolic 77–92; PULSE 67–93; RESP 12–18; TEMP 36.1–36.6; O2SAT 94–100; BMI 22.4; BMI 24.5
[2019-03-27] MEDS: LACTATED RINGERS 1,000 ML 42 ML IV ×2 (08:55→13:17)
--- NOTE | 2019-03-27 09:03 | SUR.PREOP ---
bowel obstruction 05/2018 with ostomy, reversal September 2018
--- NOTE | 2019-03-27 09:59 | PM.PREOP ---
Pre-operative Note Interval Note History & Physical reviewed/Exam performed by Physician: Yes Changes to H&P: No H&P completed within 30 days and has changed as indicated here:: please see note from 03/01 for h&p
[2019-03-27] MEDS: CEFAZOLIN 2 GM/100 ML FROZ.PIGGY IV (10:10)
--- NOTE | 2019-03-27 10:23 | SUR.OPER ---
Supine on padded OR bed, head on pillow, arms secured on padded arm boards at <90 degrees abduction, legs uncrossed, safety belt at thigh, tape over blanket over lower legs.
[2019-03-27] MEDS: BUPIVACAINE 0.5% (PF) VIAL 30 ML INJ (10:28)
--- NOTE | 2019-03-27 14:23 | PM.OP.1 ---
Operative Date/Time/Diagnoses Date of procedure: 03/27/19 Time of procedure: 14:01 Pre-op diagnosis: Two incisional hernias abdominal wall Post-op diagnosis: same Procedure & Clinicians Procedure: Repair with underlay of mesh Same procedure as scheduled: Yes Indications: Symptomatic hernias Surgeon: Ochoa Mendez Click Yes if Unassisted: Yes Anesthesia Type: General Operative Notes Findings: Two defects. One near the umbilicus and 1 at the ostomy site. Both the repaired with an underlay of mesh placed in the preperitoneal space Closure Type: primary Specimen(s): none sent Prosthetic devices, grafts, tissues, transplants, or devices: Prolene mesh Estimated Blood Loss (mL): 40 Blood products transfused: none Procedure in detail: Patient was placed supine on the operating room table and underwent general endotracheal anesthesia. Was prepped and draped in usual fashion. Incision was made through the old scar going just above the umbilicus to below. It was carried down to the level the hernia. Peritoneum was entered I could feel the fascial defect at the prior ostomy site in the left abdomen. I had also define the fascial defect of this hernia. I incised the peritoneum next to the incision in the fascia and dissected it back for about 2 in circumferentially. Midline fascia was cleaned. I then packed this wound and turned my attention to the 2nd hernia. Its anatomy was such that it actually went lateral rather than toward the medial side and I decided to repair this through a separate incision. A the old scar of the ostomy was excised and the dissection carried down to the level the fascia. I the fascia from the overlying fat and dissected down through rectus muscle to the posterior fashion the peritoneum. Principal using palpation I closed the posterior fascia anteriorly with interrupted 0 Prolene sutures. I did not enter the peritoneal cavity doing this. It was very difficult to determine fascial layers due to the prior operations performed in this area. I identified the anterior fascia and lifted it up and placed a piece of mesh under it. This was sutured into place with interrupted 0 Tycron sutures. I then closed fascia over it with interrupted 0 0 Ethibond suture. The subcu was closed with interrupted 3 0 Vicryl and skin was closed running 4 0 Vicryl subcuticular stitch and then I turned my attention back to the midline hernia. I closed the peritoneum with [id number] 2 0 Vicryl sutures. I then placed a piece of mesh in the preperitoneal space and sutured it circumferentially to the overlying fascia. This was done with 0 Ethibond sutures. I then closed the midline fascia with interrupted 1. Ethibond. The subcu was closed with interrupted 3 0 Vicryl and skin was closed running 4 0 Vicryl subcuticular stitch. Steri-Strips were applied to both wounds and dressing was applied the patient was awakened and taken recovery area in good condition. Complications: none Post-operative Condition: stable Disposition: PACU Plan for aftercare: To observation
[2019-03-27] MEDS: fentaNYL 100 MCG/2 ML INJ 50 MCG IV (14:33)
[2019-03-27] MEDS: HYDROCODONE/ACET 5/325 TABLET 1 TAB PO (14:35)
--- NOTE | 2019-03-27 15:45 | SUR.PHASEI ---
Addendum entered by Didi Limon R.N. 03/27/19 16:04: Report given to MICHELLE Mckee. Rylee to assume care of pt at this time. Original Note: Pt transferred to ICU room 3 via bed with all belongings. Pt's last vital signs stable and pain controlled; see flowsheet documentation for details.
[2019-03-27] MEDS: LACTATED RINGERS 1,000 ML 125 ML IV ×2 (16:13→23:57)
[2019-03-27] MEDS: MORPHINE 4 MG/ML INJ IV ×2 (16:23→23:57)
[2019-03-27] MEDS: IBUPROFEN 600 MG TABLET PO (16:23)
[2019-03-27] MEDS: DORZOLAMIDE/TIMOLOL OPHTH 10 ML 1 DROPS EYE-BOTH (21:01)
[2019-03-27] MEDS: TRAMADOL 50 MG TABLET 100 MG PO (21:03)
[2019-03-27] MEDS: ENOXAPARIN 40 MG/0.4 ML SYRINGE SUBCUT (21:03)
--- NOTE | 2019-03-27 22:58 | PC.NURSE ---
Pt admitted from PACU at 1530 s/p double hernia repairs. Pt arrives requesting pain medications, reports that he does not like oxycodone for pain management. Given ibuprofen and morphine iv per pt request with pain well-managed. Pt discussed preference for less potent pain management with Dr. Boston, ordered tramadol with pt reporting pain 2-3/10. Pt has been ambulating in the room. Tolerating general diet. Voiding adequately per urinal. Pt with call light in reach, instructed to call for any needs.
[2019-03-28] VITALS: O2SAT 95
[2019-03-28 00:05] VITALS: BP 129/76; PULSE 75; RESP 16; TEMP 36.8; O2SAT 95
[2019-03-28] MEDS: TRAMADOL 50 MG TABLET 100 MG PO ×2 (03:34→13:39)
[2019-03-28 05:15] VITALS: BP 138/87; PULSE 68; RESP 16; TEMP 36.3; O2SAT 95
--- NOTE | 2019-03-28 06:30 | PC.NURSE ---
A/O x4, ambulates with SBA to BR, tolerating a general diet, abdominal drsg CDI. Medicated with 4mg IV morphine x1 and 100mg Tramadol x1. VSS.
[2019-03-28 07:27] VITALS: BP 141/83; PULSE 65; RESP 18; TEMP 36.6; O2SAT 96
[2019-03-28 08:12] VITALS: O2SAT 96
[2019-03-28] MEDS: DORZOLAMIDE/TIMOLOL OPHTH 10 ML 1 DROPS EYE-BOTH (08:50)
[2019-03-28] MEDS: ENOXAPARIN 40 MG/0.4 ML SYRINGE SUBCUT (08:50)
[2019-03-28] MEDS: hydroCHLOROthiazide 25 MG TABLET PO (08:50)
--- NOTE | 2019-03-28 13:17 | PM.DS.1 ---
History of Present Illness History of Present Illness Date Patient Seen: 03/28/19 Time Patient Seen: 13:17 Chief complaint: [id number] Narrative: Patient brought in for probed 2 ventral incisional hernias. Discharge Providers Provider Discharge Date: 03/28/19 Primary care physician: Carmen Martíenz MD Consults: 03/27/19 14:46 Consult to Discharge Planning Routine Comment: Discharge provider: Ochoa Mendez MD Summary Hospital Course Discharge Diagnosis: Hypertension Incisional ventral hernias x2 Hospital Course: Patient underwent a rather large operation that went well. He had mesh placed in both hernias. He was brought in overnight for observation because of concerned that he might develop and severe ileus. He did not and he is discharged the following morning to follow up in the office. Status at Discharge Cognitive/behavioral status at discharge: oriented Functional status at discharge: independent ambulation Overall status at discharge: patient is progressing back to baseline Time Spent with Patient Time spent: Less than 30 minutes Exam Vital Signs (past 8 hours): - 03/28/19 07:27 03/28/19 08:12 Temperature 97.9 F Pulse Rate 65 Respiratory Rate 18 Blood Pressure 141/83 H Pulse Oximetry 96 96 Oxygen Delivery Method Room Air Oxygen Flow Rate 0 Narrative Exam Narrative: Dressing is dry. Abdomen is soft. Patient is alert. Objective Labs Labs: Laboratory Results - last 24 hr 03/27/19 17:12 Nasal Screen MRSA (PCR) Negative for mrsa Discharge Plan Discharge Plan Patient Disposition: Home Discharge comment: Your operation went well. He of mesh under both incisions. Discharge Med Rec/Prescriptions Prescriptions: New tramadol 50 mg tablet See Rx Instructions .ROUTE .COMPLEX PRN (Reason: painful procedure) Qty: 25 RF: 0 Continued dorzolamide-timolol 22.3-6.8 mg/mL drops 1 drp EYE-BOTH BID RF: 0 hydrochlorothiazide 25 mg tablet 25 mg PO DAILY RF: 0 PreserVision AREDS-2 [id number]-etnx-ow-mg Capsule 1 tab PO BID RF: 0 ibuprofen 600 mg tablet 600 mg PO TID PRN (Reason: pain) Qty: 20 RF: 0 Discharge Orders: Discharge (Order); Ordered 03/28/19 Ordered By: Ochoa Mendez Provider Discharge Instructions Diet: Diet as Tolerated Activity: Do not drive or operate machinery until your pain-free off medication. You may walk. No lifting over 10 lb. No exercise. No walking dogs. Skin/Wound/Dressing Care Report to your healthcare provider any signs of infection, such as:: chills, fever, increased pain, unusual drainage and unusual redness Dressing: Removed tomorrow in you may shower Visit Report/Discharge Packet Instructions: DI for Ventral Hernia Discharge Data Primary Care Provider: Carmen Martínez Attending Provider: Ochoa Mendez
--- NOTE | 2019-03-28 14:04 | CM.DANOTE ---
DCP/Brief Assessment: Reviewed chart. Patient is a 73yr old male admitted to [facility] for elective placement of mesh in both hernias. Procedure performed by Dr. Mendez on 03-27-19. PCP listed is Carmen Martínez. Patient with order to d/c home today. No d/c needs identified per physician in d/c summary and nursing. Family/friend to provide transport. P: Home today. GEORGIA Mcdonald
== END 2019-03-28 14:00 | disposition home or self-care (01) ==
LOC: OR 08:42 → ICU 19:23
PROVIDERS: PCP Family Medicine; Visit Provider Specialist
PROC: (CPT 49560; principal; 2019-03-27 09:45)
DX: K43.9 Ventral hernia without obstruction or gangrene (principal)
CPT/HCPCS: 49560 ×2; 87797; C1781; J0330; J0690; J1100; J1650; J2270; J2405; J2704; J3010

== ENCOUNTER → 2019-11-14 08:52 | Outpatient (CLI) | payer MEDICARE, OTHER, SELFPAY ==
[2019-03-27 15:48] VITALS: BMI 24.5
--- NOTE | 2019-11-14 08:53 | DI.CT.S_ITS ---
PROCEDURE: CT ABDOMEN PELVIS WO CON INDICATIONS: Bulge left abdomen, clinical concern for hernia. Pt post hernia repair w mesh TECHNIQUE: After the administration of oral contrast, 5 mm thick sections acquired from the diaphragms to the symphysis. 5 mm coronal and sagittal reformats were performed. For radiation dose reduction, the following was used: automated exposure control, adjustment of mA and/or kV according to patient size. COMPARISON: Outside Facility, , CT ABDOMEN/PELVIS WITH CONTRAST, 05/26/2019, 14:35. [facility], CT, CT ABDOMEN PELVIS W CON, 05/24/2018, 14:58. [facility], CT, CT ABDOMEN PELVIS WO CON, 03/01/2019, 13:39. FINDINGS: Image quality: Excellent. ABDOMEN: Lung bases: Lung bases are clear. Heart size is normal. Solid organs: Liver is normal in size. Gallbladder is relatively decompressed at the time of this study. Pancreas is normal in size. Spleen is normal in size. No adrenal nodules. Both kidneys are normal in size. There is an apparent right kidney extrarenal pelvis, which is similar to prior examinations. No stones are seen on the noncontrast study. No hydronephrosis. Peritoneum and bowel: Bowel loops demonstrate normal wall thickness and caliber. No free fluid or air. There is a sigmoid anastomotic staple line seen. Nodes and vessels: No retroperitoneal or mesenteric adenopathy by size criteria. Aorta and inferior vena cava are normal in size. Miscellaneous: Within the left inferior abdominal wall, there is a mild hernia, which contains nondilated small bowel at an area of prior colostomy. PELVIS: Genitourinary: Bladder wall thickness is normal. Miscellaneous: No inguinal adenopathy. Bilateral fat-containing inguinal hernias are seen, right larger than left. Bones: No suspicious bony lesions. No vertebral body compression fractures. Numerous chronic appearing Schmorl's nodes are seen. Mild levoconvex scoliotic curvature is noted. Degenerative changes are seen throughout, which are most prominent involving the lower lumbar spine. 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 Presuming that the last pair of ribs is T12, the S1 level is highly lumbarized on the right side. IMPRESSION: At the site of the prior colostomy, there is a hernia seen, which contains nondilated small bowel. Incidental note is made of: Right kidney extrarenal pelvis Sigmoid anastomotic staple line Numerous Schmorl's nodes Levoconvex lumbar scoliotic curvature Degenerative changes, worst within the lumbar spine Transitional lumbar anatomy, with a partially lumbarized S1 Bilateral A fat-containing inguinal hernias Dictated by: Alex Gan M.D. on 11/14/2019 at 9:48 Approved by: Alex Gan M.D. on 11/14/2019 at 9:54
== END ==
PROVIDERS: PCP Family Medicine; Referring Provider Specialist; Visit Provider Specialist
DX: K43.2 Incisional hernia without obstruction or gangrene (principal); K40.20 Bilateral inguinal hernia, without obstruction or gangrene, not specified as recurrent; M47.816 Spondylosis without myelopathy or radiculopathy, lumbar region; M41.9 Scoliosis, unspecified; Z98.0 Intestinal bypass and anastomosis status
CPT/HCPCS: 74176

== ENCOUNTER 2019-11-20 08:04 | Day surgery (SDC) | payer MEDICARE, OTHER, SELFPAY ==
[2019-03-27 15:48] VITALS: BMI 24.5
[2019-11-20 08:25] VITALS: BMI 22.7
[2019-11-20 08:34] VITALS: BP 149/86; PULSE 60; RESP 12; TEMP 36.4; O2SAT 99
[2019-11-20] MEDS: LACTATED RINGERS 1,000 ML 42 ML IV (08:43)
--- NOTE | 2019-11-20 09:21 | PM.PREOP ---
Pre-operative Note COVID-19 COVID-19 status: Negative Result date/Date tested (Pos, Neg/Pending): 11/18/19 Interval Note History & Physical reviewed/Exam performed by Physician: Yes Changes to H&P: Yes H&P completed within 30 days and has changed as indicated here:: CT confirms presence of incisional ventral hernia
[2019-11-20] MEDS: CEFAZOLIN 2 GM/100 ML FROZ.PIGGY IV (09:59)
--- NOTE | 2019-11-20 10:18 | SUR.OPER ---
Supine on padded OR bed, head on pillow, arms secured on padded arm boards at <90 degrees abduction, legs uncrossed, safety belt at thigh, tape over blanket over lower legs.
[2019-11-20] MEDS: BUPIVACAINE 0.5% (PF) VIAL 30 ML INJ (10:26)
[2019-11-20 11:34] VITALS: BP 110/66; PULSE 57; RESP 8; TEMP 36.1; O2SAT 95
[2019-11-20 11:39] VITALS: BP 111/63; PULSE 57; RESP 10; O2SAT 94
[2019-11-20 11:44] VITALS: BP 123/74; PULSE 58; RESP 8; O2SAT 97
[2019-11-20 11:49] VITALS: BP 131/78; PULSE 62; RESP 9; O2SAT 97
--- NOTE | 2019-11-20 11:51 | PM.OP.1 ---
Operative Date/Time/Diagnoses Date of procedure: 11/20/19 Time of procedure: 11:19 Pre-op diagnosis: Recurrent incisional ventral hernia reducible Post-op diagnosis: same Procedure & Clinicians Procedure: Repair with underlay of mesh Same procedure as scheduled: Yes Indications: Symptomatic hernia in the site of an ostomy. This is recurrence as this hernia has been repaired before. Surgeon: Ochoa Mendez Click Yes if Unassisted: Yes Anesthesia Type: General Operative Notes Findings: Mesh onlay had come away from the muscle layer and there was a hernia lifting the mesh above the muscle defect. Closure Type: primary Specimen(s): none sent Prosthetic devices, grafts, tissues, transplants, or devices: 1.7 in circular Ventralex mesh Estimated Blood Loss (mL): 10 Blood products transfused: none Procedure in detail: The patient is placed supine on the operating room table and underwent general LMA anesthesia. He was prepped and draped in the usual fashion. Transverse incisions made through the old scar and carried down through the subcu to the level of what appeared to be mesh. It was from the overlying fat. It appeared to be that at least a portion of the mesh had lifted off the underlying muscle and to of the hernia had come of under that. I the mesh from the hernia sac and dissected it under his [place] muscle. This dissection muscle from underlying hernia sac was done circumferentially. When I had cleared well back from the edge the dissection appeared to be good. I made an opening in the peritoneum so I could palpate inside to make sure there were no other fascial defects. I could feel none. There also no adhesions. I closed the peritoneum with F interrupted 3 0 Vicryl. The mesh was placed in the preperitoneal space and tacked circumferentially with U stitches of 0 Ethibond down through muscle fascia down through mesh up to mesh in up through muscle fascia. These were tied to pull the mesh up but not so tight as to cause the muscle to necrosis. The fascia was then closed side to side with interrupted figure of 8 0 Ethibond sutures. The subcu was closed in 2 layers with interrupted 3 0 Vicryl and the skin was closed running 4 0 Vicryl subcuticular stitch and Steri-Strips. 240 nylons were placed in the medial aspect because I was not quite happy with the way the skin came together in that area. After applying Steri-Strips and Mastisol dressing was applied the patient was awakened and taken the recovery area in good condition. Complications: none Post-operative Condition: stable Disposition: PACU
--- NOTE | 2019-11-20 11:57 | SUR.PHASEI ---
report given to A MICHELLE Danielle prior to transfer. Pain 2/10, tolerating po well.
[2019-11-20] MEDS: OXYCODONE/ACETAMINOPHEN 5/325 TABLET 1 TAB PO (12:06)
[2019-11-20 12:17] VITALS: BP 140/89; PULSE 54; RESP 14; TEMP 36.1; O2SAT 98
--- NOTE | 2019-11-20 12:20 | SUR.PHASEII ---
Patient A/O. Tolerating po. Denies pain/nausea. Gave po pain medication for long ferry ride to [place].
== END 2019-11-20 12:46 | disposition home or self-care (01) ==
PROVIDERS: PCP Family Medicine; Referring Provider Specialist; Visit Provider Specialist
PROC: (CPT 49565; principal; 2019-11-20 09:15)
DX: K43.2 Incisional hernia without obstruction or gangrene (principal); I10 Essential (primary) hypertension; Z98.0 Intestinal bypass and anastomosis status
CPT/HCPCS: 49565; 49568; C1781; J0690; J1100; J1885; J2250; J2405; J2704; J3010